=== PATIENT | male | born 1950 | race Caucasian/White ===

== ENCOUNTER 2017-12-13 06:40 | Day surgery (SDC) | payer MEDICARE, OTHER, SELFPAY ==
[2017-12-13] VITALS (9 sets, daily range): BP systolic 103–123; BP diastolic 66–77; PULSE 58–74; RESP 12–18; TEMP 36.4–36.8; O2SAT 94–99; BMI 24.0
[2017-12-13] MEDS: LACTATED RINGERS 1,000 ML 100 ML IV (07:29)
--- NOTE | 2017-12-13 07:57 | PM.PREOP ---
Pre-operative Note Interval Note Pre-op Check: History & Physical Reviewed by Physician and Exam Performed H&P completed within 30 days and has changed as indicated here:: no change
[2017-12-13] MEDS: LACTATED RINGERS 1,000 ML 42 ML IV (08:00)
[2017-12-13] MEDS: CLINDAMYCIN 900 MG/50 ML PIGGYBACK 200 MG IV (08:01)
--- NOTE | 2017-12-13 08:38 | SUR.OPER ---
USING BUPIVICAINE )0.5% INJECTED LOCALLY AT THE TIME OF THIS NOTE IT WAS NOT YET ENTERED INTO MAR TOTAL # INJECTED WILL BE NOTED AT END OF CASE
--- NOTE | 2017-12-13 09:08 | SUR.OPER ---
25 CC'S OF(0.5% BUPIVICAINE) LOCAL INJECTED
[2017-12-13] MEDS: BUPIVACAINE 0.5% (PF) 30 ML VIAL INJ (09:20)
--- NOTE | 2017-12-13 09:40 | PM.OP.1 ---
Operative Date/Time/Diagnoses - Date of procedure: 12/13/17 Time of procedure: 09:28 Pre-op diagnosis: Reducible left inguinal hernia no obstruction or strangulation Post-op diagnosis: same (Indirect) Procedure & Clinicians Procedure: Repair left inguinal hernia with plug and patch technique Same procedure as scheduled: Yes Indications: Symptomatic left inguinal hernia. SCOAP protocal followed Surgeon: Leo Lord Click Yes if Unassisted: Yes Anesthesia Type: General Operative Notes Findings: Indirect sac. Intact floor Closure Type: primary Specimen(s): none sent Implants & Drains: Mesh Estimated Blood Loss (mL): 5 Blood products transfused: none Procedure in detail: The patient was placed supine on the operating room table and underwent general LMA anesthesia. He was prepped and draped in the usual fashion. A transverse incision was made overlying the internal ring and carried down to the level of the external oblique. The external oblique was opened parallel with its fibers through the external ring. The cord structures were elevated. The cremaster was opened proximally and search made for an indirect sac. 1 was found. It was from surrounding structures opened and found to contain fat which easily reduced into the peritoneal cavity. It was suture ligated with 2 0 silk at the level of the deep epigastric vessels. A small plug was placed in the defect and tacked into place with interrupted 0 Tycron suture.. The floor was examined and was found to be intact. A patch was placed across the floor and tacked at the pubic tubercle, the posterior lamella of the anterior rectus sheath, the ilioinguinal ligament, and superior lateral to the cord. The opening was modified as necessary to prevent tight constriction of the cord. Sutures of 0 Tycron were used to secure the mesh. The external oblique was closed with a running 3 0 Polysorb. The subcu was closed with interrupted 3 0 Polysorb. The skin was closed with a running 4 0 Polysorb subcuticular stitch and Steri-Strips. Dressing was applied, the patient was awakened, and the patient was taken to the recovery area in good condition. Complications: none Condition: stable Disposition: PACU Plan for aftercare: Follow-up Sunday 1:00 p.m.
[2017-12-13] MEDS: OXYCODONE/ACETAMINOPHEN 5/325 TABLET 1 TAB PO (09:41)
--- NOTE | 2017-12-13 10:18 | SUR.PHASEII ---
pt tolerating coffee, denies any pain at this time, dressing remains dry and intact.
== END 2017-12-13 10:53 | disposition home or self-care (01) ==
PROVIDERS: Family Provider Family Medicine; PCP Family Medicine; Visit Provider Specialist
PROC: (CPT 49505; principal; 2017-12-13 07:45)
DX: K40.90 Unilateral inguinal hernia, without obstruction or gangrene, not specified as recurrent (principal); I48.91 Unspecified atrial fibrillation
CPT/HCPCS: 49505; C1781; J1100; J2250; J2405; J2704; J3010

== ENCOUNTER → 2017-12-21 12:40 | Outpatient (CLI) | payer MEDICARE, OTHER, SELFPAY ==
[2017-12-21 13:40] LABS: Add Manual Diff / Slide Review NO; Basophils Percent Auto 0.8 % (0-2); Eosinophils Percent Auto 1.5 % (2-4); Hematocrit 43.4 % (41-53); Hemoglobin 14.9 g/dL (13.5-17.5); Lymphocytes Percent Auto 20.3 % (25-40); Mean Corpuscular HGB Conc 34.3 % (30-36); Mean Corpuscular Hemoglobin 30.3 PG (26-34); Mean Corpuscular Volume 88.4 fL (80-100); Monocytes Percent Auto 8.6 % (3-14); Neutrophils Absolute Auto 3600 /uL (3000-5900); Neutrophils Percent Auto 68.8 % (50-75); Platelet Count 249 X10^3/uL (150-400); Red Blood Cell Count 4.91 X10^6/uL (4.5-5.9); Red Cell Distribution Width 12.8 % (11.6-14.8); White Blood Cell Count 5.2 X10^3/uL (4.5-11.0)
[2017-12-21 13:47] LABS: HEMOLYSIS < 15 (0-50); Iron 88 ug/dL (49-181)
[2017-12-21 13:57] LABS: Percent Iron Saturation 30 % (20-50); Total Iron Binding Capacity 297 ug/dL (261-462); Transferrin 237 mg/dL (206-381)
[2017-12-21 14:22] LABS: Ferritin 75.1 ng/mL (17.9-464)
== END ==
PROVIDERS: PCP Family Medicine; Visit Provider Family Medicine
DX: D50.9 Iron deficiency anemia, unspecified (principal)
CPT/HCPCS: 36415; 82728; 83540; 83550; 85025

== ENCOUNTER → 2018-04-24 15:12 | Outpatient (CLI) | payer MEDICARE, OTHER, SELFPAY ==
[2018-04-24 16:22] LABS: Blood Urea Nitrogen 25 mg/dL (9-20); Calcium 9.1 mg/dL (8.4-10.2); Carbon Dioxide 23 mmol/L (22-32); Chloride 102 mmol/L (98-107); Estimated Glomerular Filt Rate > 60.0 mL/min (>60); Glucose 93 mg/dL (80-110); HEMOLYSIS < 15 (0-50); Potassium 4.8 mmol/L (3.4-5.1); Sodium 138 mmol/L (137-145)
== END ==
PROVIDERS: Family Provider Family Medicine; PCP Family Medicine; Visit Provider Family Medicine
DX: I10 Essential (primary) hypertension (principal)
CPT/HCPCS: 36415; 80048

== ENCOUNTER → 2018-04-30 09:37 | Outpatient (CLI) | payer MEDICARE, OTHER, SELFPAY ==
--- NOTE | 2018-04-30 | DI.MRI.S_ITS ---
PROCEDURE: MR LUMBAR SPINE WO/W CON INDICATIONS: Cauda equina syndrome TECHNIQUE: Noncontrast sagittal T1 spin echo and T2 fast spin echo, sagittal STIR, axial T1 and T2 fast spin echo through the lumbar spine. In cases with scoliosis, additional coronal T2 fast spin echo may be performed. After the administration of contrast, sagittal and axial T1 spin echo with fat saturation through the lumbar spine. COMPARISON: [facility], MR, L-SPINE W&WO CONTRAST, 10/11/2012, 17:36. [facility], MR, L-SPINE W&WO CONTRAST, 11/15/2015, 11:37. [facility], MR, L-SPINE W&WO CONTRAST, 06/05/2014, 18:59. FINDINGS: Image quality: Excellent. Alignment and curvature: There is grade 1 anterolisthesis of L4 on L5. Minimal retrolisthesis of L2 on L3. Marrow: Marrow is of normal overall signal. No acute vertebral body compression fractures. No suspicious marrow enhancement. Spinal cord: Conus medullaris terminates at the L1 level. Visualized spinal cord demonstrates normal signal, without suspicious enhancement. Paraspinous soft tissues: No paravertebral masses or abnormal enhancement. The multiple small renal cysts are seen bilaterally L1-L2: Preserved disc height. Mild disc desiccation. There is mild posterior disc bulge. There is moderate bilateral facet arthropathy and mild hypertrophy of ligamentum flavum. The central canal is patent. No foraminal stenosis. L2-L3: Left hemilaminectomy. Moderate loss of disc height and disc desiccation. There is diffuse posterior disc bulge. The central canal is patent. No foraminal stenosis. L3-L4: Moderate loss of disc height and disc desiccation. There is diffuse posterior disc bulge. Mild bilateral facet arthropathy and hypertrophy of ligamentum flavum. The central canal is patent. [id number] bilateral foraminal stenosis. There is no significant change from the last exam. L4-L5: Moderate loss of disc height and disc desiccation. There is diffuse posterior disc bulge. Severe bilateral facet arthropathy and mild hypertrophy of ligamentum flavum. The central canal is mildly narrowed. Mild-to moderate bilateral foraminal stenosis. There is no significant change from the last exam. L5-S1: Preserved disc height. Mild disc desiccation. Mild to moderate bilateral facet arthropathy. No central canal or foraminal stenosis. IMPRESSION: 1. Multilevel degenerative and postsurgical as described. 2. Mild central canal stenosis at L4-L5. 3. Mild-to- foraminal stenosis at L3-L4 bilaterally and L4-L5 bilaterally. Dictated by: Hortencia Mckinnon M.D. on 04/30/2018 at 11:27 Approved by: Hortencia Mckinnon M.D. on 04/30/2018 at 17:14
== END ==
PROVIDERS: PCP Family Medicine; Visit Provider Family Medicine
DX: G83.4 Cauda equina syndrome (principal); M54.16 Radiculopathy, lumbar region; M51.36 Other intervertebral disc degeneration, lumbar region; M51.37 Other intervertebral disc degeneration, lumbosacral region; M48.061 Spinal stenosis, lumbar region without neurogenic claudication; M48.07 Spinal stenosis, lumbosacral region
CPT/HCPCS: 72158; A9579

== ENCOUNTER 2018-09-07 11:10 | Emergency (ER) | payer MEDICARE, OTHER, SELFPAY ==
[2018-09-07 11:26] VITALS: BP 111/77; PULSE 81; RESP 16; TEMP 36.6; O2SAT 99; BMI 25.0
--- NOTE | 2018-09-07 11:28 | DI.RAD.S_ITS ---
PROCEDURE: XR FOOT RT MIN 3V INDICATIONS: right foot pain TECHNIQUE: 3 views of the foot were acquired. COMPARISON: None. FINDINGS: Bones: Mildly displaced fracture involving the base of the fifth metatarsal. First MTP joint osteoarthritis. Soft tissues: No tibiotalar joint effusion. Achilles tendon appears normal. IMPRESSION: Fifth metatarsal fracture. Dictated by: Opal David MD, PhD on 09/07/2018 at 11:46 Approved by: Opal David MD, PhD on 09/07/2018 at 11:47
--- NOTE | 2018-09-07 11:50 | ED.LOWEXIN ---
HPI - Extremity Injury (Lower) General Chief Complaint: Extremity Injury, Lower Stated Complaint: injured rt foot last night walking, swelling, brui Time Seen by Provider: 09/07/18 11:33 Source: patient and family () Mode of arrival: ambulatory Limitations: no limitations History of Present Illness HPI Narrative: This is a 68-year-old male comes to the emergency department with complaint of right foot pain. Patient states that he was walking yesterday with his he felt like stepping on hard rock had pain in his foot since then. It is localized to the outside of the right foot. Patient states if he bears weight is uncomfortable. If he does not he is fine. He did take have hydrocodone said yesterday. He was able to sleep without the night without any issues. He does not have any new tingling or numbness. He has some chronic tingling from prior cauda equina. No new weakness. No other skin changes. Patient denies any trauma or injury otherwise. Related Data Home Medications Medication Instructions Recorded Confirmed apixaban [Eliquis] 5 mg PO BID #0 12/20/16 12/28/17 clonazepam 0.5 mg PO TID PRN #0 12/20/16 12/28/17 cyclobenzaprine 10 mg PO TID PRN #0 12/20/16 12/28/17 diazepam 2 mg PO BEDTIME #0 12/20/16 12/28/17 olopatadine [Patanol] 1 drp EYE-BOTH BID #0 12/20/16 12/28/17 escitalopram oxalate 20 mg PO DAILY 12/11/17 12/28/17 fluticasone 1 spray INTRANASAL DAILY 12/11/17 12/28/17 lisinopril 10 mg PO DAILY 12/11/17 12/28/17 magnesium oxide 400 mg PO DAILY 12/11/17 12/28/17 meloxicam 15 mg PO DAILY PRN 12/11/17 12/28/17 metoprolol succinate 50 mg PO BID 12/11/17 12/28/17 omeprazole 20 mg PO DAILY PRN 12/11/17 12/28/17 tamsulosin 0.4 mg PO BID 12/11/17 12/28/17 trazodone 100 mg PO BEDTIME 12/11/17 12/28/17 Allergies Allergy/AdvReac Type Severity Reaction Status Date / Time Milk Containing Products Allergy Unknown Diarrhea Verified 12/28/17 14:04 Penicillins [PENICILLINS] Allergy Unknown Hallucinations, Verified 12/28/17 14:04 Fever whey Allergy Unknown Diarrhea Verified 12/28/17 14:04 Review of Systems Review of Systems ROS Unobtainable: All systems reviewed & are unremarkable except as noted in HPI and below Constitutional Denies weakness Musculoskeletal Reports as per HPI, Denies numbness, Reports tingling (Chronic) and Reports other (Pain in foot) Integumentary/Breasts Denies erythema, Denies rash, Denies unusual bruising and Denies wounds Neurologic Denies numbness, Reports tingling (Chronic) and Denies weakness PFSH Medical History Anemia (Acute) Arthritis (Acute) History of atrial fibrillation (Acute) Hypertension (Acute) Impaired vision (Acute) Left inguinal hernia (Acute) Neuropathy of left lower extremity (Acute) Neuropathy of right lower extremity (Acute) Pain in finger of both hands (Acute) CONI (cauda equina syndrome) (Chronic) Surgical History H/O cardiac radiofrequency ablation (Acute) Social History household members: spouse Smoking Status: Former smoker alcohol intake: never Social History household members: spouse Smoking Status: Former smoker alcohol intake: never Exam Narrative Exam Narrative: GENERAL: Alert and oriented x three, well-nourished, well-appearing male in no acute distress. HEENT: Head normocephalic, atraumatic, EOMI, pupils reactive, face symmetric, moist mucous membranes NECK: Supple, full range of motion EXTREMITIES: Normal range of motion, no clubbing or edema. Neurovascularly intact. Patient has some tenderness over the proximal right metatarsal. There is some slight swelling. Possibly some very mild bruising. Patient has normal sensation to touch. 2+ dorsalis pedis normal range of motion NEUROLOGICAL: Cranial nerves II through XII grossly intact. Moving all extremities SKIN: Warm, dry, no petechiae, no rashes or lesions. Initial Vital Signs Initial Vital Signs: Vital Signs Temperature 97.9 F 09/07/18 11:26 Pulse Rate 81 09/07/18 11:26 Respiratory Rate 16 09/07/18 11:26 Blood Pressure 111/77 09/07/18 11:26 Pulse Oximetry 99 09/07/18 11:26 Course Orders Ordered: ED Orders 09/07/18 11:28 XR foot RT min 3V Stat Vital Signs - 8 hr 09/07/18 11:26 Temperature 97.9 F Pulse Rate 81 Respiratory Rate 16 Blood Pressure 111/77 Pulse Oximetry 99 MDM - Extremity Injury (Lower) Imaging Data foot xray: Radiologist's impression: [address] [address] XRay Report Signed Patient: Brien Trejo LMR#: [id number] : 1950Acct:[id number] Age/Sex: 68 / MDate of Service: 09/07/18 Loc: ED Accession Number: [id number] Procedure: XR foot RT min 3V Ordering Provider: Flor Kraus D.O. PROCEDURE: XR FOOT RT MIN 3V INDICATIONS: right foot pain TECHNIQUE: 3 views of the foot were acquired. COMPARISON: None. FINDINGS: Bones: Mildly displaced fracture involving the base of the fifth metatarsal. First MTP joint osteoarthritis. Soft tissues: No tibiotalar joint effusion. Achilles tendon appears normal. IMPRESSION: Fifth metatarsal fracture. Dictated by: Opal David MD, PhD on 09/07/2018 at 11:46 Approved by: Opal David MD, PhD on 09/07/2018 at 11:47 [facility] Narrative Medical decision making narrative: Spoke with Dr. Rausch, plan for ortho shoe. Follow up with orthopedic surgery. Discharge Plan Departure Patient Disposition: Home Clinical Impression: Closed fracture of fifth metatarsal bone Qualifiers: Encounter type: initial encounter Fracture alignment: displaced Laterality: right Qualified Code(s): S92.351A - Displaced fracture of fifth metatarsal bone, right foot, initial encounter for closed fracture Discharge Date/Time: 09/07/18 12:50 Interventions: ED Discharge Assessment Last Done: 09/07/18 12:57 Instructions: DI for March Stress Fracture Activity Restrictions/Additional Instructions: Follow-up with Orthopedic surgery in the next 5-7 days, call for an appointment. You may take Tylenol up to a 1000 mg every 8 hr for pain, you may take up to 3000 mg every 24 hr as needed. Splint Care: Keep splint clean and dry. Elevated affected body part to decrease swelling. OK to use ice pack on the affected body part. Use for 15-20 minutes each time, for 5-6x per day. If you develop worsening pain, numbness, tingling, discoloration of the affected body part, loosen the splint by loosening the GILLES wrap, and either see your doctor for an urgent re-assessment, or return to the Emergency Department. Return to the Emergency Department for any new or worsening symptoms. Prescriptions: No Action diazepam 2 MG tablet 2 mg PO BEDTIME Qty: 0 RF: 0 cyclobenzaprine 10 MG tablet 10 mg PO TID PRN (Reason: Muscle spasms) Qty: 0 RF: 0 clonazepam 0.5 MG tablet 0.5 mg PO TID PRN (Reason: Anxiety) Qty: 0 RF: 0 olopatadine [Patanol] 5 ML drops 1 drp EYE-BOTH BID Qty: 0 RF: 0 apixaban [Eliquis] 5 MG tablet 5 mg PO BID Qty: 0 RF: 0 metoprolol succinate 50 mg Tablet Extended Release 24 Hr 50 mg PO BID RF: 0 meloxicam 15 mg Tablet 15 mg PO DAILY PRN (Reason: pain) RF: 0 magnesium oxide 400 mg Tablet 400 mg PO DAILY RF: 0 lisinopril 10 mg Tablet 10 mg PO DAILY RF: 0 fluticasone 50 mcg/actuation [place],Suspension 1 spray INTRANASAL DAILY RF: 0 escitalopram oxalate 20 mg Tablet 20 mg PO DAILY RF: 0 tamsulosin 0.4 mg Capsule,Extended Release 24hr 0.4 mg PO BID RF: 0 trazodone 100 mg Tablet 100 mg PO BEDTIME RF: 0 omeprazole 20 mg Capsule,Delayed Release(Dr/Ec) 20 mg PO DAILY PRN (Reason: seeinstr) RF: 0 Referrals: Sandra Cox MD [Primary Care Provider] - Bryan Rausch MD [Physician] -
--- NOTE | 2018-09-07 11:58 | ED_ITS ---
HPI - Extremity Injury (Lower) General Chief Complaint: Extremity Injury, Lower Stated Complaint: injured rt foot last night walking, swelling, brui Time Seen by Provider: 09/07/18 11:33 Source: patient and family () Mode of arrival: ambulatory Limitations: no limitations History of Present Illness HPI Narrative: This is a 68-year-old male comes to the emergency department with complaint of right foot pain. Patient states that he was walking yesterday with his he felt like stepping on hard rock had pain in his foot since then. It is localized to the outside of the right foot. Patient states if he bears weight is uncomfortable. If he does not he is fine. He did take have hydrocodone said yesterday. He was able to sleep without the night without any issues. He does not have any new tingling or numbness. He has some chronic tingling from prior cauda equina. No new weakness. No other skin changes. Patient denies any trauma or injury otherwise. Related Data Home Medications Medication Instructions Recorded Confirmed apixaban [Eliquis] 5 mg PO BID #0 12/20/16 12/28/17 clonazepam 0.5 mg PO TID PRN #0 12/20/16 12/28/17 cyclobenzaprine 10 mg PO TID PRN #0 12/20/16 12/28/17 diazepam 2 mg PO BEDTIME #0 12/20/16 12/28/17 olopatadine [Patanol] 1 drp EYE-BOTH BID #0 12/20/16 12/28/17 escitalopram oxalate 20 mg PO DAILY 12/11/17 12/28/17 fluticasone 1 spray INTRANASAL DAILY 12/11/17 12/28/17 lisinopril 10 mg PO DAILY 12/11/17 12/28/17 magnesium oxide 400 mg PO DAILY 12/11/17 12/28/17 meloxicam 15 mg PO DAILY PRN 12/11/17 12/28/17 metoprolol succinate 50 mg PO BID 12/11/17 12/28/17 omeprazole 20 mg PO DAILY PRN 12/11/17 12/28/17 tamsulosin 0.4 mg PO BID 12/11/17 12/28/17 trazodone 100 mg PO BEDTIME 12/11/17 12/28/17 Allergies Allergy/AdvReac Type Severity Reaction Status Date / Time Milk Containing Products Allergy Unknown Diarrhea Verified 12/28/17 14:04 Penicillins [PENICILLINS] Allergy Unknown Hallucinations, Verified 12/28/17 14:04 Fever whey Allergy Unknown Diarrhea Verified 12/28/17 14:04 Review of Systems Review of Systems ROS Unobtainable: All systems reviewed & are unremarkable except as noted in HPI and below Constitutional Denies weakness Musculoskeletal Reports as per HPI, Denies numbness, Reports tingling (Chronic) and Reports other (Pain in foot) Integumentary/Breasts Denies erythema, Denies rash, Denies unusual bruising and Denies wounds Neurologic Denies numbness, Reports tingling (Chronic) and Denies weakness PFSH Medical History Anemia (Acute) Arthritis (Acute) History of atrial fibrillation (Acute) Hypertension (Acute) Impaired vision (Acute) Left inguinal hernia (Acute) Neuropathy of left lower extremity (Acute) Neuropathy of right lower extremity (Acute) Pain in finger of both hands (Acute) CONI (cauda equina syndrome) (Chronic) Surgical History H/O cardiac radiofrequency ablation (Acute) Social History household members: spouse Smoking Status: Former smoker alcohol intake: never Social History household members: spouse Smoking Status: Former smoker alcohol intake: never Exam Narrative Exam Narrative: GENERAL: Alert and oriented x three, well-nourished, well- appearing male in no acute distress. HEENT: Head normocephalic, atraumatic, EOMI, pupils reactive, face symmetric, moist mucous membranes NECK: Supple, full range of motion EXTREMITIES: Normal range of motion, no clubbing or edema. Neurovascularly intact. Patient has some tenderness over the proximal right metatarsal. There is some slight swelling. Possibly some very mild bruising. Patient has normal sensation to touch. 2+ dorsalis pedis normal range of motion NEUROLOGICAL: Cranial nerves II through XII grossly intact. Moving all extremities SKIN: Warm, dry, no petechiae, no rashes or lesions. Initial Vital Signs Initial Vital Signs: Vital Signs Temperature 97.9 F 09/07/18 11:26 Pulse Rate 81 09/07/18 11:26 Respiratory Rate 16 09/07/18 11:26 Blood Pressure 111/77 09/07/18 11:26 Pulse Oximetry 99 09/07/18 11:26 Course Orders Ordered: ED Orders 09/07/18 11:28 XR foot RT min 3V Stat Vital Signs - 8 hr 09/07/18 11:26 Temperature 97.9 F Pulse Rate 81 Respiratory Rate 16 Blood Pressure 111/77 Pulse Oximetry 99 MDM - Extremity Injury (Lower) Imaging Data foot xray: Radiologist's impression: [address] [address] XRay Report Signed Patient: Brien Trejo LMR#: [id number] : 1950Acct:[id number] Age/Sex: 68 / MDate of Service: 09/07/18 Loc: ED Accession Number: [id number] Procedure: XR foot RT min 3V Ordering Provider: Flor Kraus D.O. PROCEDURE: XR FOOT RT MIN 3V INDICATIONS: right foot pain TECHNIQUE: 3 views of the foot were acquired. COMPARISON: None. FINDINGS: Bones: Mildly displaced fracture involving the base of the fifth metatarsal. First MTP joint osteoarthritis. Soft tissues: No tibiotalar joint effusion. Achilles tendon appears normal. IMPRESSION: Fifth metatarsal fracture. Dictated by: Opal David MD, PhD on 09/07/2018 at 11:46 Approved by: Opal David MD, PhD on 09/07/2018 at 11:47 [facility] Narrative Medical decision making narrative: Spoke with Dr. Rausch, plan for ortho shoe. Follow up with orthopedic surgery. Discharge Plan Departure Patient Disposition: Home Clinical Impression: Closed fracture of fifth metatarsal bone Qualifiers: Encounter type: initial encounter Fracture alignment: displaced Laterality: right Qualified Code(s): S92.351A - Displaced fracture of fifth metatarsal bone, right foot, initial encounter for closed fracture Discharge Date/Time: 09/07/18 12:50 Interventions: ED Discharge Assessment Last Done: 09/07/18 12:57 Instructions: DI for March Stress Fracture Activity Restrictions/Additional Instructions: Follow-up with Orthopedic surgery in the next 5-7 days, call for an appointment. You may take Tylenol up to a 1000 mg every 8 hr for pain, you may take up to 3000 mg every 24 hr as needed. Splint Care: Keep splint clean and dry. Elevated affected body part to decrease swelling. OK to use ice pack on the affected body part. Use for 15-20 minutes each time, for 5-6x per day. If you develop worsening pain, numbness, tingling, discoloration of the affected body part, loosen the splint by loosening the GILLES wrap, and either see your doctor for an urgent re-assessment, or return to the Emergency Department. Return to the Emergency Department for any new or worsening symptoms. Prescriptions: No Action diazepam 2 MG tablet 2 mg PO BEDTIME Qty: 0 RF: 0 cyclobenzaprine 10 MG tablet 10 mg PO TID PRN (Reason: Muscle spasms) Qty: 0 RF: 0 clonazepam 0.5 MG tablet 0.5 mg PO TID PRN (Reason: Anxiety) Qty: 0 RF: 0 olopatadine [Patanol] 5 ML drops 1 drp EYE-BOTH BID Qty: 0 RF: 0 apixaban [Eliquis] 5 MG tablet 5 mg PO BID Qty: 0 RF: 0 metoprolol succinate 50 mg Tablet Extended Release 24 Hr 50 mg PO BID RF: 0 meloxicam 15 mg Tablet 15 mg PO DAILY PRN (Reason: pain) RF: 0 magnesium oxide 400 mg Tablet 400 mg PO DAILY RF: 0 lisinopril 10 mg Tablet 10 mg PO DAILY RF: 0 fluticasone 50 mcg/actuation [place],Suspension 1 spray INTRANASAL DAILY RF: 0 escitalopram oxalate 20 mg Tablet 20 mg PO DAILY RF: 0 tamsulosin 0.4 mg Capsule,Extended Release 24hr 0.4 mg PO BID RF: 0 trazodone 100 mg Tablet 100 mg PO BEDTIME RF: 0 omeprazole 20 mg Capsule,Delayed Release(Dr/Ec) 20 mg PO DAILY PRN (Reason: seeinstr) RF: 0 Referrals: Sandra Cox MD [Primary Care Provider] - Bryan Rausch MD [Physician] -
== END 2018-09-07 12:50 | disposition home or self-care (01) ==
PROVIDERS: Emergency Provider Emergency Medicine; PCP Family Medicine
DX: S92.351A Displaced fracture of fifth metatarsal bone, right foot, initial encounter for closed fracture (principal)
CPT/HCPCS: 29550; 73630; 99282; 99283

== ENCOUNTER → 2018-12-04 14:00 | Outpatient (CLI) | payer MEDICARE, OTHER, SELFPAY ==
[2018-12-04 15:08] LABS: Add Manual Diff / Slide Review NO; Basophils Absolute Auto 0 /uL (0-100); Basophils Percent Auto 0.8 % (0-2); Eosinophils Absolute Auto 0 /uL (0-450); Hematocrit 43.5 % (41-53); Hemoglobin 15.1 g/dL (13.5-17.5); Lymphocytes Absolute Auto 1200 /uL (1100-4500); Lymphocytes Percent Auto 34.3 % (25-40); Mean Corpuscular HGB Conc 34.7 % (30-36); Mean Corpuscular Hemoglobin 30.4 PG (26-34); Mean Corpuscular Volume 87.7 fL (80-100); Monocytes Absolute Auto 400 /uL (0-900); Monocytes Percent Auto 10.4 % (3-14); Neutrophils Absolute Auto 1900 /uL (1500-7000); Neutrophils Percent Auto 53.5 % (50-75); Platelet Count 222 X10^3/uL (150-400); Red Blood Cell Count 4.96 X10^6/uL (4.5-5.9); Red Cell Distribution Width 13.5 % (11.6-14.8); White Blood Cell Count 3.5 X10^3/uL (4.5-11.0)
[2018-12-04 15:27] LABS: Alanine Aminotransferase 18 IU/L (21-72); Albumin 4.5 g/dL (3.5-5.0); Albumin Globulin Ratio 1.5 (1.0-2.8); Alkaline Phosphatase 52 U/L (38-126); Aspartate Aminotransferase 29 IU/L (17-59); BUN Creatinine Ratio 27.5 (6-22); Bilirubin Total 0.6 mg/dL (0.2-1.3); Blood Urea Nitrogen 22 mg/dL (9-20); Calcium 9.7 mg/dL (8.4-10.2); Carbon Dioxide 25 mmol/L (22-32); Chloride 103 mmol/L (98-107); Estimated Glomerular Filt Rate > 60.0 mL/min (>60); Globulin 3.1 g/dL (1.7-4.1); Glucose 89 mg/dL (80-110); HEMOLYSIS < 15 (0-50); Potassium 4.3 mmol/L (3.4-5.1); Sodium 137 mmol/L (137-145); Total Protein 7.6 g/dL (6.3-8.2)
[2018-12-04 15:30] LABS: Iron 118 ug/dL (49-181)
== END ==
PROVIDERS: PCP Family Medicine; Visit Provider Family Medicine
DX: D50.9 Iron deficiency anemia, unspecified (principal)
CPT/HCPCS: 36415; 80053; 83540; 85025

== ENCOUNTER → 2019-07-23 15:01 | Outpatient (CLI) | payer MEDICARE, OTHER, SELFPAY ==
[2019-07-23 16:36] LABS: HEMOLYSIS < 15 (0-50); Iron 95 ug/dL (49-181)
[2019-07-23 16:38] LABS: Add Manual Diff / Slide Review NO; Basophils Absolute Auto 0 /uL (0-100); Basophils Percent Auto 0.8 % (0-2); Eosinophils Absolute Auto 100 /uL (0-450); Eosinophils Percent Auto 1.4 % (2-4); Hematocrit 45.8 % (41-53); Hemoglobin 15.5 g/dL (13.5-17.5); Lymphocytes Absolute Auto 1300 /uL (1100-4500); Lymphocytes Percent Auto 36.6 % (25-40); Mean Corpuscular Volume 88.2 fL (80-100); Monocytes Absolute Auto 400 /uL (0-900); Monocytes Percent Auto 10.9 % (3-14); Neutrophils Absolute Auto 1800 /uL (1500-7000); Neutrophils Percent Auto 50.3 % (50-75); Platelet Count 199 X10^3/uL (150-400); Red Blood Cell Count 5.19 X10^6/uL (4.5-5.9); Red Cell Distribution Width 12.7 % (11.6-14.8); White Blood Cell Count 3.6 X10^3/uL (4.5-11.0)
[2019-07-23 16:40] LABS: Alanine Aminotransferase 18 IU/L (<50); Albumin 4.5 g/dL (3.5-5.0); Albumin Globulin Ratio 1.6 (1.0-2.8); Alkaline Phosphatase 53 U/L (38-126); Aspartate Aminotransferase 27 IU/L (17-59); BUN Creatinine Ratio 15.6 (6-22); Bilirubin Total 0.6 mg/dL (0.2-1.3); Blood Urea Nitrogen 14 mg/dL (9-20); Calcium 9.6 mg/dL (8.4-10.2); Carbon Dioxide 22 mmol/L (22-32); Chloride 104 mmol/L (98-107); Estimated Glomerular Filt Rate > 60.0 mL/min (>60); Globulin 2.9 g/dL (1.7-4.1); Glucose 92 mg/dL (80-110); HEMOLYSIS < 15 (0-50); Potassium 4.5 mmol/L (3.4-5.1); Sodium 138 mmol/L (137-145); Total Protein 7.4 g/dL (6.3-8.2)
[2019-07-23 16:47] LABS: Percent Iron Saturation 33 % (20-50); Total Iron Binding Capacity 288 ug/dL (261-462); Transferrin 233 mg/dL (206-381)
[2019-07-23 17:10] LABS: Prostate Specific Antigen 1.75 ng/mL (0.10-4.00)
== END ==
PROVIDERS: PCP Family Medicine; Visit Provider Family Medicine
DX: E78.41 Elevated Lipoprotein(a) (principal); E61.1 Iron deficiency; N40.0 Benign prostatic hyperplasia without lower urinary tract symptoms
CPT/HCPCS: 36415; 80053; 83540; 83550; 84153; 85025

== ENCOUNTER → 2019-11-05 14:49 | Outpatient (CLI) | payer MEDICARE, OTHER, SELFPAY ==
[2019-11-05 15:21] LABS: Add Manual Diff / Slide Review NO; Basophils Absolute Auto 0 /uL (0-100); Basophils Percent Auto 0.9 % (0-2); Eosinophils Absolute Auto 100 /uL (0-450); Eosinophils Percent Auto 1.6 % (2-4); Hematocrit 43.1 % (41-53); Hemoglobin 14.8 g/dL (13.5-17.5); Lymphocytes Absolute Auto 1300 /uL (1100-4500); Lymphocytes Percent Auto 32.9 % (25-40); Mean Corpuscular HGB Conc 34.4 % (30-36); Mean Corpuscular Hemoglobin 30.5 PG (26-34); Mean Corpuscular Volume 88.6 fL (80-100); Monocytes Absolute Auto 400 /uL (0-900); Neutrophils Absolute Auto 2200 /uL (1500-7000); Neutrophils Percent Auto 53.6 % (50-75); Platelet Count 215 X10^3/uL (150-400); Red Blood Cell Count 4.87 X10^6/uL (4.5-5.9); Red Cell Distribution Width 13.4 % (11.6-14.8)
[2019-11-05 16:12] LABS: BUN Creatinine Ratio 19.8 (6-22); Blood Urea Nitrogen 18 mg/dL (9-20); Calcium 9.7 mg/dL (8.4-10.2); Carbon Dioxide 28 mmol/L (22-32); Chloride 104 mmol/L (98-107); Estimated Glomerular Filt Rate > 60.0 mL/min (>60); Glucose 93 mg/dL (80-110); HEMOLYSIS < 15 (0-50); Potassium 4.4 mmol/L (3.4-5.1); Sodium 137 mmol/L (137-145)
[2019-11-05 16:42] LABS: Iron 137 ug/dL (49-181)
[2019-11-05 16:47] LABS: Ferritin 91 ng/mL (18-464)
== END ==
PROVIDERS: PCP Family Medicine; Referring Provider Family Medicine; Visit Provider Family Medicine
DX: D50.9 Iron deficiency anemia, unspecified (principal); I10 Essential (primary) hypertension
CPT/HCPCS: 36415; 80048; 82728; 83540; 85025

== ENCOUNTER → 2020-02-23 09:36 | Outpatient (CLI) | payer MEDICARE, OTHER, SELFPAY ==
--- NOTE | 2020-02-23 | DI.MRI.S_ITS ---
PROCEDURE: MR LUMBAR SPINE WO/W CON INDICATIONS: Cauda equina syndrome TECHNIQUE: Noncontrast sagittal T1 spin echo and T2 fast spin echo, sagittal STIR, axial T1 and T2 fast spin echo through the lumbar spine. In cases with scoliosis, additional coronal T2 fast spin echo may be performed. After the administration of contrast, sagittal and axial T1 spin echo with fat saturation through the lumbar spine. COMPARISON: [facility], RG, XR IVP W/TOMOGRAMS, 07/31/2000, 11:03. [facility], RG, XR L-SPINE 7V, 04/02/2006, 10:46. [facility], XA, L/S-SPINE 2-3 VIEWS PAIN DEPT, 05/27/2008, 9:05. [facility], MR, MR LUMBAR SPINE WO/W CON, 04/30/2018, 10:06. FINDINGS: Image quality: Excellent. Alignment and curvature: 5 lumbar type vertebral bodies are present by plain film. There is mild grade 1 retrolisthesis of L1 on L2, L2 on L3, and L3 on L4. Mild grade 1 anterolisthesis of L4 on L5. Marrow: Marrow is of normal overall signal. No acute vertebral body compression fractures. No suspicious marrow enhancement. There is mild reactive signal within the endplates adjacent to the L2-L3, L3-L4, and L4-L5 intervertebral discs. Left L2-L3 hemilaminotomy. Spinal cord: Conus medullaris terminates at the lower L1 level. Visualized spinal cord demonstrates normal signal, without suspicious enhancement. Paraspinous soft tissues: No paravertebral masses or abnormal enhancement. No change in 29 mm left adrenal nodule. L1-L2: Mild disc desiccation. Mild diffuse disc bulge. Mild facet hypertrophy bilaterally. Mild canal stenosis. Mild bilateral foraminal stenosis. No change. L2-L3: Moderate disc height loss and desiccation. Mild diffuse disc bulge. Mild bilateral facet hypertrophy. Mild canal stenosis. Mild bilateral foraminal stenosis. No change. L3-L4: Moderate disc height loss and desiccation. Mild diffuse disc bulge/osteophyte. Mild bilateral facet and ligamentum flavum hypertrophy. Mild canal stenosis. Moderate subarticular foraminal stenosis bilaterally. No change. L4-L5: Severe disc height loss and desiccation. Mild diffuse disc bulge with superimposed broad-based left far lateral protrusion. Mild bilateral facet and ligamentum flavum hypertrophy. Increased, moderate canal stenosis. Mild bilateral foraminal stenosis. L5-S1: Mild bilateral facet hypertrophy. Mild canal stenosis. Mild bilateral foraminal stenosis. No change. IMPRESSION: 1. No change in left adrenal nodule. 2. Multilevel degenerative disc and facet disease, as well as ligamentum flavum hypertrophy and epidural lipomatosis. 3. Multilevel canal stenosis, worst at L4-L5 where there is moderate canal stenosis. 4. Multilevel foraminal stenoses, worst at L3-L4 bilaterally where there are moderate foraminal stenoses. 5. Postsurgical sequelae at L2-L3. Dictated by: María Donald M.D. on 02/23/2020 at 13:41 Approved by: María Donald M.D. on 02/23/2020 at 14:00
== END ==
PROVIDERS: PCP Family Medicine; Referring Provider Family Medicine; Visit Provider Family Medicine
DX: G83.4 Cauda equina syndrome (principal); M51.16 Intervertebral disc disorders with radiculopathy, lumbar region; M48.061 Spinal stenosis, lumbar region without neurogenic claudication; M48.07 Spinal stenosis, lumbosacral region; E27.9 Disorder of adrenal gland, unspecified; R25.2 Cramp and spasm; E88.2 Lipomatosis, not elsewhere classified
CPT/HCPCS: 72158

== ENCOUNTER → 2020-07-22 07:51 | Outpatient (CLI) | payer MEDICARE, OTHER, SELFPAY ==
[2020-07-22] MEDS: COVID-19 VACC #1, MRNA(MOD) 100 MCG/0.5 ML VIAL IM (08:02)
== END ==
PROVIDERS: PCP Family Medicine; Visit Provider Internal Medicine
DX: Z23 Encounter for immunization (principal)
CPT/HCPCS: 0011A; 91301

== ENCOUNTER → 2020-07-26 12:04 | Oncology outpatient (ONC) | payer MEDICARE, OTHER, SELFPAY ==
[2020-01-08 10:44] VITALS: BP 133/85; PULSE 49; RESP 16; TEMP 36.5; O2SAT 100
--- NOTE | 2020-01-08 10:45 | ONC.CONS ---
History of Present Illness - Data of Consult Patient: new to practice Consult date: 01/08/20 Requesting Physician: Sandra Cox MD Primary Care Provider: Sandra Cox MD - Consult Narrative Reason for consult: Leukopenia Narrative: Brien Trejo is a 69 year old male. He was referred by Dr. Sandra Cox MD for for evaluation of mild chronic low white blood cell count. Patient himself claimed that he had never had any anemia or low blood counts until after a laminectomy probably around 2009. He was evaluated in March [address] Jusitn Almonte at [facility]. At that time patient carried a diagnosis of anemia and a mild neutropenia which was believed to be secondary to iron deficiency and folic acid deficiency. His lowest WBC was 2.8 on 07/01/2010. His H/H and PLT were completely within the normal range. But he was having pain and splitting at the corners of the mouth splitting and nail splitting. The signs and symptoms went away when he started taking ferrous sulfate and folate. Thereafter, her WBC has been largely normal. This happened again about 1-2 years later after another treatment with 5-FU. Brien has not had any 5-FU treatment for several years now. Brien said he has not been feeling sick. He had convergent ablation in 2017 for atrial fibrillation. He denies any fever or chills. He denies nausea or vomiting. He does report occasional diarrhea and thought to be due to medications. He is now taking oral iron pills every day. He said if he is not taking the pill, he will feel winded. CC: Lito Melo MD Patient reports pain?: No Home Medications and Allergies Home Medications Medication Instructions Recorded Confirmed Type Eliquis 5 mg PO BID #0 12/20/16 01/08/20 History clonazepam 0.5 mg PO TID PRN #0 12/20/16 01/08/20 History cyclobenzaprine 10 mg PO TID PRN #0 12/20/16 01/08/20 History diazepam 2 mg PO BEDTIME #0 12/20/16 01/08/20 History olopatadine [Patanol] 1 drp EYE-BOTH BID #0 12/20/16 12/28/17 History escitalopram oxalate 20 mg PO DAILY 12/11/17 01/08/20 History fluticasone propionate 1 spray INTRANASAL DAILY 12/11/17 01/08/20 History lisinopril 10 mg PO DAILY 12/11/17 01/08/20 History magnesium oxide 400 mg PO DAILY 12/11/17 01/08/20 History meloxicam 15 mg PO DAILY PRN 12/11/17 01/08/20 History metoprolol succinate 50 mg PO BID 12/11/17 01/08/20 History omeprazole 20 mg PO DAILY PRN 12/11/17 01/08/20 History trazodone 100 mg PO BEDTIME 12/11/17 01/08/20 History finasteride 5 mg tablet 5 mg PO DAILY 01/05/20 01/08/20 History hydrocodone-acetaminophen 1 tab PO BID PRN 01/08/20 01/08/20 History Allergies Allergy/AdvReac Type Severity Reaction Status Date / Time Milk Containing Products Allergy Unknown Diarrhea Verified 01/05/20 08:55 Penicillins [PENICILLINS] Allergy Unknown Hallucinations, Verified 01/05/20 08:55 Fever whey Allergy Unknown Diarrhea Verified 01/05/20 08:55 Medical History - Medical, Surgical, Family History Medical History: Medical History (Last Updated 01/05/20 @ 09:30 by Reed Minaya MD) Anemia Arthritis BPH (benign prostatic hyperplasia) BPH w urinary obs/LUTS CONI (cauda equina syndrome) Depression History of atrial fibrillation Hypertension Impaired vision Kidney stones Left inguinal hernia Neurogenic bladder Neuropathy of left lower extremity Neuropathy of right lower extremity Pain in finger of both hands Surgical History: Surgical History (Last Updated 01/05/20 @ 08:59 by Tawny Rosales RN) H/O cardiac radiofrequency ablation Previous back surgery Vasectomy status Family History: Family History (Last Updated 01/08/20 @ 11:01 by Lito Melo MD) Mother Ovarian cancer - Social History Smoking Status: Former smoker Substance Use Type: does not use Alcohol Intake: never Review of Systems All systems PM: reviewed and no additional remarkable complaints except as stated Exam Vital signs: 01/08/20 11:03 Last Vital Signs Temp 97.7 F 01/08/20 10:44 Pulse 49 L 01/08/20 10:44 Resp 16 01/08/20 10:44 BP 133/85 01/08/20 10:44 Pulse Ox 100 01/08/20 10:44 - Constitutional positive no acute distress, positive average body habitus, positive cooperative - Routine HEENT Exam Head: Present: normocephalic, atraumatic Eye: Present: EOMI, PERRL, normal accommodation. Absent: conjunctival icterus - Routine Neck Exam Present: supple. Absent: lymphadenopathy, thyromegaly - Routine Chest/Breast/Axilla Exam Axillae: Absent: lymphadenopathy - Routine Respiratory Exam Present: Clear to auscultation bilaterally - Routine Cardiovascular Exam Present: RRR, S1, S2. Absent: murmur, gallop, rubs - Routine Abdominal Exam Present: soft. Absent: organomegaly - Routine Extremities Exam Absent: edema - Routine Neurological Exam Present: alert, oriented X3, CN II-XII intact, normal reflexes, hearing grossly intact. Absent: sensory deficit, motor deficit - Routine Psychiatric Exam Present: normal affect, normal thought process, cooperative, good insight, good judgment. Absent: depressed, anxious Results - Labs Laboratory Last Values WBC 3.3 X10^3/uL (4.5-11.0) L 01/08/20 11:04 RBC 4.60 X10^6/uL (4.5-5.9) 01/08/20 11:04 Hgb 14.1 g/dL (13.5-17.5) 01/08/20 11:04 Hct 41.2 % (41-53) 01/08/20 11:04 MCV 89.6 fL (80-100) 01/08/20 11:04 MCH 30.6 PG (26-34) 01/08/20 11:04 MCHC 34.1 % (30-36) 01/08/20 11:04 RDW 13.1 % (11.6-14.8) 01/08/20 11:04 Plt Count 188 X10^3/uL (150-400) 01/08/20 11:04 Neut % (Auto) 54.1 % (50-75) 01/08/20 11:04 Lymph % (Auto) 33.2 % (25-40) 01/08/20 11:04 [place] % (Auto) 10.4 % (3-14) 01/08/20 11:04 Eos % (Auto) 1.4 % (2-4) L 01/08/20 11:04 Baso % (Auto) 0.9 % (0-2) 01/08/20 11:04 Neut # (Auto) 1800 /uL (3760-9748) 01/08/20 11:04 Lymph # (Auto) 1100 /uL (7061-5264) 01/08/20 11:04 [place] # (Auto) 300 /uL (0-900) 01/08/20 11:04 Eos # (Auto) 0 /uL (0-450) 01/08/20 11:04 Baso # (Auto) 0 /uL (0-100) 01/08/20 11:04 Sodium 138 mmol/L (137-145) 01/08/20 11:04 Potassium 5.0 mmol/L (3.4-5.1) 01/08/20 11:04 Chloride 105 mmol/L (98-107) 01/08/20 11:04 Carbon Dioxide 28 mmol/L (22-32) 01/08/20 11:04 BUN 22 mg/dL (9-20) H 01/08/20 11:04 Creatinine 0.86 mg/dL (0.66-1.25) 01/08/20 11:04 Estimated GFR > 60.0 mL/min (>60) 01/08/20 11:04 BUN/Creatinine Ratio 25.6 (6-22) H 01/08/20 11:04 Glucose 99 mg/dL (80-110) 01/08/20 11:04 Calcium 9.6 mg/dL (8.4-10.2) 01/08/20 11:04 Iron 97 ug/dL (49-181) 01/08/20 11:17 TIBC 271 ug/dL (261-462) 01/08/20 11:17 % Saturation 36 % (20-50) 01/08/20 11:17 Transferrin 214 mg/dL (206-381) 01/08/20 11:17 Ferritin 103 ng/mL (18-464) 01/08/20 11:17 Total Bilirubin 0.6 mg/dL (0.2-1.3) 01/08/20 11:04 AST 31 IU/L (17-59) 01/08/20 11:04 ALT 23 IU/L (<50) 01/08/20 11:04 Alkaline Phosphatase 52 U/L (38-126) 01/08/20 11:04 Lactate Dehydrogenase 337 U/L (313-618) 01/08/20 11:04 Total Protein 7.1 g/dL (6.3-8.2) 01/08/20 11:04 Albumin 4.4 g/dL (3.5-5.0) 01/08/20 11:04 Globulin 2.7 g/dL (1.7-4.1) 01/08/20 11:04 Albumin/Globulin Ratio 1.6 (1.0-2.8) 01/08/20 11:04 - Imaging Additional studies: Procedures Colonoscopy (01/20/11) Injection or infusion of other therapeutic or prophylactic substance (01/25/14) Assessment and Plan (1) Leukopenia Overview: 68-year-old gentleman was referred here to evaluate the chronic low white blood cell count and anemia on oral iron supplementation. Assessment: I talked with the patient that mild leukopenia has multiple etiologies. One of the common causes is medication. Patient said that he has never had any problems until after the laminectomy. Based on Dr. Sandra Cox's note, patient was treated with 5 FU for actinic keratosis. And the use of 5 FU was coincide with the patient's low white cell count in 2010 and then probably around [id number]. Thereafter patient has not taken any 5-FU. In addition, patient had probably iron deficiency anemia, and he has been taking oral irons all the time. He said that if he misses the doses of iron, he will feel winded. I talked with the patient that I will obtain blood samples to check for CBC, CMP and iron status today. Then, I will have the patient come back in about 6 weeks to repeat the lab tests. If they are stable and normal, I think no further tests are necessary. If the are low, patient may need bone marrow aspiration and biopsy. During this interval, I recommended that patient try to stop oral iron pills, that may have masked the underlying iron deficiency or bleeding events. Plan: CBC, CMP, Iron panel, Ferritni today RTC in 6 weeks and repeat the tests (2) Anemia See above
[2020-01-08 11:15] LABS: Add Manual Diff / Slide Review NO; Basophils Absolute Auto 0 /uL (0-100); Basophils Percent Auto 0.9 % (0-2); Eosinophils Absolute Auto 0 /uL (0-450); Eosinophils Percent Auto 1.4 % (2-4); Hematocrit 41.2 % (41-53); Hemoglobin 14.1 g/dL (13.5-17.5); Lymphocytes Absolute Auto 1100 /uL (1100-4500); Lymphocytes Percent Auto 33.2 % (25-40); Mean Corpuscular HGB Conc 34.1 % (30-36); Mean Corpuscular Hemoglobin 30.6 PG (26-34); Mean Corpuscular Volume 89.6 fL (80-100); Monocytes Absolute Auto 300 /uL (0-900); Monocytes Percent Auto 10.4 % (3-14); Neutrophils Absolute Auto 1800 /uL (1500-7000); Neutrophils Percent Auto 54.1 % (50-75); Platelet Count 188 X10^3/uL (150-400); Red Cell Distribution Width 13.1 % (11.6-14.8); White Blood Cell Count 3.3 X10^3/uL (4.5-11.0)
[2020-01-08 11:27] LABS: Alanine Aminotransferase 23 IU/L (<50); Albumin 4.4 g/dL (3.5-5.0); Albumin Globulin Ratio 1.6 (1.0-2.8); Alkaline Phosphatase 52 U/L (38-126); Aspartate Aminotransferase 31 IU/L (17-59); BUN Creatinine Ratio 25.6 (6-22); Bilirubin Total 0.6 mg/dL (0.2-1.3); Blood Urea Nitrogen 22 mg/dL (9-20); Calcium 9.6 mg/dL (8.4-10.2); Carbon Dioxide 28 mmol/L (22-32); Chloride 105 mmol/L (98-107); Estimated Glomerular Filt Rate > 60.0 mL/min (>60); Globulin 2.7 g/dL (1.7-4.1); Glucose 99 mg/dL (80-110); HEMOLYSIS < 15 (0-50); Lactate Dehydrogenase 337 U/L (313-618); Sodium 138 mmol/L (137-145); Total Protein 7.1 g/dL (6.3-8.2)
[2020-01-08 11:37] LABS: HEMOLYSIS < 15 (0-50); Iron 97 ug/dL (49-181)
[2020-01-08 11:47] LABS: Percent Iron Saturation 36 % (20-50); Total Iron Binding Capacity 271 ug/dL (261-462); Transferrin 214 mg/dL (206-381)
[2020-01-08 12:15] LABS: Ferritin 103 ng/mL (18-464)
[2020-01-08 19:17] LABS: Folate > 20.0 ng/mL (2.76-20.0); Vitamin B12 957 pg/mL (239-931)
[2020-01-12 11:12] LABS: Methylmalonic Acid,Serum 107 nmol/L (0-378)
[2020-02-18 12:32] LABS: Add Manual Diff / Slide Review NO; Basophils Absolute Auto 0 /uL (0-100); Basophils Percent Auto 0.8 % (0-2); Eosinophils Absolute Auto 0 /uL (0-450); Eosinophils Percent Auto 0.8 % (2-4); Hemoglobin 14.7 g/dL (13.5-17.5); Lymphocytes Absolute Auto 1200 /uL (1100-4500); Lymphocytes Percent Auto 35.6 % (25-40); Mean Corpuscular HGB Conc 34.1 % (30-36); Mean Corpuscular Hemoglobin 30.7 PG (26-34); Mean Corpuscular Volume 89.9 fL (80-100); Monocytes Absolute Auto 300 /uL (0-900); Monocytes Percent Auto 9.5 % (3-14); Neutrophils Absolute Auto 1800 /uL (1500-7000); Neutrophils Percent Auto 53.3 % (50-75); Platelet Count 213 X10^3/uL (150-400); Red Blood Cell Count 4.78 X10^6/uL (4.5-5.9); Red Cell Distribution Width 13.2 % (11.6-14.8); White Blood Cell Count 3.3 X10^3/uL (4.5-11.0)
[2020-02-18 12:39] LABS: Alanine Aminotransferase 19 IU/L (<50); Albumin 4.5 g/dL (3.5-5.0); Albumin Globulin Ratio 1.5 (1.0-2.8); Alkaline Phosphatase 53 U/L (38-126); Aspartate Aminotransferase 28 IU/L (17-59); Bilirubin Total 0.8 mg/dL (0.2-1.3); Blood Urea Nitrogen 23 mg/dL (9-20); Calcium 9.4 mg/dL (8.4-10.2); Carbon Dioxide 28 mmol/L (22-32); Chloride 105 mmol/L (98-107); Estimated Glomerular Filt Rate > 60.0 mL/min (>60); Glucose 101 mg/dL (80-110); HEMOLYSIS < 15 (0-50); Potassium 4.7 mmol/L (3.4-5.1); Sodium 137 mmol/L (137-145); Total Protein 7.5 g/dL (6.3-8.2)
[2020-02-18 12:56] LABS: HEMOLYSIS < 15 (0-50); Iron 123 ug/dL (49-181)
[2020-02-18 13:07] LABS: Percent Iron Saturation 45 % (20-50); Total Iron Binding Capacity 275 ug/dL (261-462); Transferrin 212 mg/dL (206-381)
[2020-02-18 13:15] LABS: Ferritin 129 ng/mL (18-464)
[2020-02-18 13:45] LABS: Folate > 20.0 ng/mL (2.76-20.0); Vitamin B12 860 pg/mL (239-931)
[2020-02-19 15:53] VITALS: BP 122/81; PULSE 54; RESP 18; TEMP 36.6; O2SAT 99
--- NOTE | 2020-02-19 15:59 | P.PNONC_ITS ---
PN -Subjective Interval history: Brien Trejo is a 70 year old male. He was referred by Dr. Sandra Cox MD for for evaluation of mild chronic low white blood cell count. Patient himself claimed that he had never had any anemia or low blood counts until after a laminectomy probably around 2009. He was evaluated in March [address] The odore Almonte at [facility]. At that time patient carried a diagnosis of anemia and a mild neutropenia which was believed to be secondary to iron deficiency and folic acid deficiency. His lowest WBC was 2.8 on 07/01/2010. His H/H and PLT were completely within the normal range. But he was having pain and splitting at the corners of the mouth splitting and nail splitting. The signs and symptoms went away when he started taking ferrous sulfate and folate. Thereafter, her WBC has been largely normal. This happened again about 1-2 years later after another treatment with 5-FU. Brien has not had any 5-FU treatment for several years now. Interval Events: He and his presented here today for review of the laboratory test results. Clinically he does not have any new signs or symptoms. - Patient Self-Reported Symptoms SR Genitourinary issues: Frequent urination SR Musculoskeletal issues: Muscle pain or cramps, Back or neck pain SR Neuro issues: Numbness or tingling Home Medications and Allergies Home Medications Medication Instructions Recorded Confirmed Type Eliquis 5 mg PO BID #0 12/20/16 02/19/20 History clonazepam 0.5 mg PO TID PRN #0 12/20/16 02/19/20 History diazepam 2 mg PO BEDTIME #0 12/20/16 02/19/20 History escitalopram oxalate 20 mg PO DAILY 12/11/17 02/19/20 History fluticasone propionate 1 spray INTRANASAL DAILY 12/11/17 02/19/20 History lisinopril 10 mg PO DAILY 12/11/17 02/19/20 History magnesium oxide 400 mg PO DAILY 12/11/17 02/19/20 History meloxicam 15 mg PO DAILY PRN 12/11/17 02/19/20 History metoprolol succinate 50 mg PO BID 12/11/17 02/19/20 History omeprazole 20 mg PO DAILY PRN 12/11/17 02/19/20 History trazodone 100 mg PO BEDTIME 12/11/17 02/19/20 History finasteride 5 mg tablet 5 mg PO DAILY 01/05/20 02/19/20 History hydrocodone-acetaminophen 1 tab PO BID PRN 01/08/20 02/19/20 History Allergies Allergy/AdvReac Type Severity Reaction Status Date / Time Milk Containing Products Allergy Unknown Diarrhea Verified 01/05/20 08:55 Penicillins [PENICILLINS] Allergy Unknown Hallucinations, Verified 01/05/20 08:55 Fever whey Allergy Unknown Diarrhea Verified 01/05/20 08:55 Exam Vital signs: Vital Signs Temp Pulse Resp BP Pulse Ox 02/19/20 15:53 98 F 54 L 18 122/81 99 Intake and Output 02/18/20 02/19/20 02/19/20 23:59 07:59 15:59 Other: Weight 86 kg Patient Weight 02/19/20 23:59 Weight 86 kg - Constitutional positive no acute distress, positive average body habitus, positive chronically ill appearing, positive cooperative - Routine HEENT Exam Head: Present: normocephalic, atraumatic. Absent: cushingoid faces, abrasion, laceration - Routine Neck Exam Present: supple, full ROM. Absent: normal carotid upstroke, lymphadenopathy, thyromegaly, swelling - Routine Respiratory Exam Present: Clear to auscultation bilaterally. Absent: decreased breath sounds, accessory muscle use, rales, rhonchi, wheezes, crackles - Routine Cardiovascular Exam Present: RRR, S1, S2, gallop, rubs, S3, S4 - Routine Abdominal Exam Present: soft. Absent: tenderness, distended - Routine Extremities Exam Absent: edema - Routine Neurological Exam Present: alert, oriented X3, CN II-XII intact. Absent: sensory deficit, motor deficit - Routine Psychiatric Exam Present: normal affect, normal thought process Results - Labs Laboratory Last Values WBC 3.3 X10^3/uL (4.5-11.0) L 02/18/20 12:16 RBC 4.78 X10^6/uL (4.5-5.9) 02/18/20 12:16 Hgb 14.7 g/dL (13.5-17.5) 02/18/20 12:16 Hct 43.0 % (41-53) 02/18/20 12:16 MCV 89.9 fL (80-100) 02/18/20 12:16 MCH 30.7 PG (26-34) 02/18/20 12:16 MCHC 34.1 % (30-36) 02/18/20 12:16 RDW 13.2 % (11.6-14.8) 02/18/20 12:16 Plt Count 213 X10^3/uL (150-400) 02/18/20 12:16 Neut % (Auto) 53.3 % (50-75) 02/18/20 12:16 Lymph % (Auto) 35.6 % (25-40) 02/18/20 12:16 [place] % (Auto) 9.5 % (3-14) 02/18/20 12:16 Eos % (Auto) 0.8 % (2-4) L 02/18/20 12:16 Baso % (Auto) 0.8 % (0-2) 02/18/20 12:16 Neut # (Auto) 1800 /uL (0040-5769) 02/18/20 12:16 Lymph # (Auto) 1200 /uL (0305-9855) 02/18/20 12:16 [place] # (Auto) 300 /uL (0-900) 02/18/20 12:16 Eos # (Auto) 0 /uL (0-450) 02/18/20 12:16 Baso # (Auto) 0 /uL (0-100) 02/18/20 12:16 Sodium 137 mmol/L (137-145) 02/18/20 12:16 Potassium 4.7 mmol/L (3.4-5.1) 02/18/20 12:16 Chloride 105 mmol/L (98-107) 02/18/20 12:16 Carbon Dioxide 28 mmol/L (22-32) 02/18/20 12:16 BUN 23 mg/dL (9-20) H 02/18/20 12:16 Creatinine 0.96 mg/dL (0.66-1.25) 02/18/20 12:16 Estimated GFR > 60.0 mL/min (>60) 02/18/20 12:16 BUN/Creatinine Ratio 24.0 (6-22) H 02/18/20 12:16 Glucose 101 mg/dL (80-110) 02/18/20 12:16 Calcium 9.4 mg/dL (8.4-10.2) 02/18/20 12:16 Iron 123 ug/dL (49-181) 02/18/20 12:16 TIBC 275 ug/dL (261-462) 02/18/20 12:16 % Saturation 45 % (20-50) 02/18/20 12:16 Transferrin 212 mg/dL (206-381) 02/18/20 12:16 Ferritin 129 ng/mL (18-464) 02/18/20 12:16 Total Bilirubin 0.8 mg/dL (0.2-1.3) 02/18/20 12:16 AST 28 IU/L (17-59) 02/18/20 12:16 ALT 19 IU/L (<50) 02/18/20 12:16 Alkaline Phosphatase 53 U/L (38-126) 02/18/20 12:16 Lactate Dehydrogenase 337 U/L (313-618) 01/08/20 11:04 Total Protein 7.5 g/dL (6.3-8.2) 02/18/20 12:16 Albumin 4.5 g/dL (3.5-5.0) 02/18/20 12:16 Globulin 3.0 g/dL (1.7-4.1) 02/18/20 12:16 Albumin/Globulin Ratio 1.5 (1.0-2.8) 02/18/20 12:16 Vitamin B12 860 pg/mL (239-931) 02/18/20 12:16 Methylmalonic Acid 107 nmol/L (0-378) 01/08/20 11:17 Folate > 20.0 ng/mL (2.76-20.0) H 02/18/20 12:16 Ref Lab Notation Comment (.) 01/08/20 11:17 - Imaging Additional studies: Procedures Colonoscopy (01/20/11) Injection or infusion of other therapeutic or prophylactic substance (01/25/14) Assessment and Plan (1) Leukopenia Overview: 70-year-old gentleman was referred here to evaluate the chronic low white blood cell count and anemia Assessment: I reviewed the lab results with the patient. Patient's total white cell count is 3.3. ANC and ALC were within the normal range. Vitamin B12, methylmalonic acid, and folate were all within the normal range. I talked with patient that I do not think there is any underlying hematological disorder. I do not think that bone marrow aspiration biopsy is indicated at this point. We continue active surveillance. Plan: RTC in 6 months, CBC, CMP, Iron panel, Ferritin, MMA, B12, folic acid (2) Anemia See above
[2020-02-20 21:40] LABS: Methylmalonic Acid,Serum 100 nmol/L (0-378)
[2020-07-16 12:17] LABS: HEMOLYSIS < 15 (0-50); Iron 121 ug/dL (49-181)
[2020-07-16 12:28] LABS: Percent Iron Saturation 38 % (20-50); Total Iron Binding Capacity 315 ug/dL (261-462); Transferrin 239 mg/dL (206-381)
[2020-07-16 12:50] LABS: Vitamin B12 938 pg/mL (239-931)
[2020-07-16 12:52] LABS: Ferritin 118 ng/mL (18-464)
[2020-07-16 13:00] LABS: Prostate Specific Antigen 1.15 ng/mL (0.10-4.00)
[2020-07-16 13:35] LABS: Folate 9.4 ng/mL (2.76-20.0)
[2020-07-19 23:41] LABS: Methylmalonic Acid,Serum 106 nmol/L (0-378)
--- NOTE | 2020-07-26 11:01 | P.PNONC_ITS ---
PN -Subjective Interval history: Brien Trejo is a 70 year old male. He was referred by Dr. Sandra Cox MD for evaluation of mild chronic low white blood cell count. Patient himself claimed that he had never had any anemia or low blood counts until after a laminectomy probably around 2009. He was evaluated in March [address] Justin Almonte at [facility]. At that time patient carried a diagnosis of anemia and a mild neutropenia which was believed to be secondary to iron deficiency and folic acid deficiency. His lowest WBC was 2.8 on 07/01/2010. His H/H and PLT were completely within the normal range. But he was having pain and splitting at the corners of the mouth splitting and nail splitting. The signs and symptoms went away when he started taking ferrous sulfate and folate. Thereafter, her WBC has been largely normal. This happened again about 1-2 years later after another treatment with 5-FU. Brien has not had any 5-FU treatment for several years now. Interval Events: He and his presented here today for review of the laboratory test results. Clinically he does not have any new signs or symptoms. - Patient Self-Reported Symptoms SR Genitourinary issues: Frequent urination SR Musculoskeletal issues: Muscle pain or cramps, Back or neck pain SR Neuro issues: Numbness or tingling - Additional ROS All systems PM: reviewed and no additional remarkable complaints except as stated Home Medications and Allergies Home Medications Medication Instructions Recorded Confirmed Type Eliquis 5 mg PO BID #0 12/20/16 02/19/20 History clonazepam 0.5 mg PO TID PRN #0 12/20/16 02/19/20 History diazepam 2 mg PO BEDTIME #0 12/20/16 02/19/20 History escitalopram oxalate 20 mg PO DAILY 12/11/17 02/19/20 History fluticasone propionate 1 spray INTRANASAL DAILY 12/11/17 02/19/20 History lisinopril 10 mg PO DAILY 12/11/17 02/19/20 History magnesium oxide 400 mg PO DAILY 12/11/17 02/19/20 History meloxicam 15 mg PO DAILY PRN 12/11/17 02/19/20 History metoprolol succinate 50 mg PO BID 12/11/17 02/19/20 History omeprazole 20 mg PO DAILY PRN 12/11/17 02/19/20 History finasteride 5 mg tablet 5 mg PO DAILY 01/05/20 02/19/20 History hydrocodone-acetaminophen 1 tab PO BID PRN 01/08/20 02/19/20 History ferrous sulfate 325 mg PO DAILY 07/26/20 07/26/20 History Allergies Allergy/AdvReac Type Severity Reaction Status Date / Time Milk Containing Products Allergy Unknown Diarrhea Verified 01/05/20 08:55 Penicillins [PENICILLINS] Allergy Unknown Hallucinations, Verified 01/05/20 08:55 Fever whey Allergy Unknown Diarrhea Verified 01/05/20 08:55 Exam Vital signs: 07/26/20 13:21 Last Vital Signs Temp 98 F 02/19/20 15:53 Pulse 59 L 07/26/20 11:08 Resp 16 07/26/20 11:08 BP 129/79 07/26/20 11:08 Pulse Ox 99 02/19/20 15:53 - Constitutional positive no acute distress, positive cooperative - Routine HEENT Exam Head: Present: normocephalic, atraumatic Eye: Present: EOMI, PERRL, normal accommodation. Absent: conjunctival icterus ENT: Present: mucous membranes moist - Routine Neck Exam Present: supple. Absent: lymphadenopathy, thyromegaly - Routine Chest/Breast/Axilla Exam Axillae: Absent: lymphadenopathy - Routine Respiratory Exam Present: Clear to auscultation bilaterally. Absent: wheezes - Routine Cardiovascular Exam Present: RRR, S1, S2. Absent: murmur, gallop, rubs - Routine Abdominal Exam Present: soft. Absent: distended - Routine Extremities Exam Absent: edema - Routine Neurological Exam Present: alert, oriented X3, CN II-XII intact. Absent: sensory deficit, motor deficit - Routine Psychiatric Exam Present: normal affect Results - Labs Laboratory Last Values WBC 3.6 X10^3/uL (4.5-11.0) L 07/26/20 12:24 RBC 4.80 X10^6/uL (4.5-5.9) 07/26/20 12:24 Hgb 14.6 g/dL (13.5-17.5) 07/26/20 12:24 Hct 42.4 % (41-53) 07/26/20 12:24 MCV 88.3 fL (80-100) 07/26/20 12:24 MCH 30.3 PG (26-34) 07/26/20 12:24 MCHC 34.4 % (30-36) 07/26/20 12:24 RDW 13.6 % (11.6-14.8) 07/26/20 12:24 Plt Count 196 X10^3/uL (150-400) 07/26/20 12:24 Neut % (Auto) 58.7 % (50-75) 07/26/20 12:24 Lymph % (Auto) 30.3 % (25-40) 07/26/20 12:24 Forrest % (Auto) 9.4 % (3-14) 07/26/20 12:24 Eos % (Auto) 0.7 % (2-4) L 07/26/20 12:24 Baso % (Auto) 0.9 % (0-2) 07/26/20 12:24 Neut # (Auto) 2100 /uL (6354-2219) 07/26/20 12:24 Lymph # (Auto) 1100 /uL (4922-6199) 07/26/20 12:24 Forrest # (Auto) 300 /uL (0-900) 07/26/20 12:24 Eos # (Auto) 0 /uL (0-450) 07/26/20 12:24 Baso # (Auto) 0 /uL (0-100) 07/26/20 12:24 Sodium 140 mmol/L (137-145) 07/26/20 12:24 Potassium 4.5 mmol/L (3.4-5.1) 07/26/20 12:24 Chloride 105 mmol/L (98-107) 07/26/20 12:24 Carbon Dioxide 30 mmol/L (22-32) 07/26/20 12:24 BUN 15 mg/dL (9-20) 07/26/20 12:24 Creatinine 0.70 mg/dL (0.66-1.25) 07/26/20 12:24 Estimated GFR > 60.0 mL/min (>60) 07/26/20 12:24 BUN/Creatinine Ratio 21.4 (6-22) 07/26/20 12:24 Glucose 98 mg/dL (80-110) 07/26/20 12:24 Calcium 9.4 mg/dL (8.4-10.2) 07/26/20 12:24 Iron 121 ug/dL (49-181) 07/16/20 11:37 TIBC 315 ug/dL (261-462) 07/16/20 11:37 % Saturation 38 % (20-50) 07/16/20 11:37 Transferrin 239 mg/dL (206-381) 07/16/20 11:37 Ferritin 118 ng/mL (18-464) 07/16/20 11:37 Total Bilirubin 0.5 mg/dL (0.2-1.3) 07/26/20 12:24 AST 31 IU/L (17-59) 07/26/20 12:24 ALT 28 IU/L (<50) 07/26/20 12:24 Alkaline Phosphatase 56 U/L (38-126) 07/26/20 12:24 Lactate Dehydrogenase 337 U/L (313-618) 01/08/20 11:04 Total Protein 7.4 g/dL (6.3-8.2) 07/26/20 12:24 Albumin 4.4 g/dL (3.5-5.0) 07/26/20 12:24 Globulin 3.0 g/dL (1.7-4.1) 07/26/20 12:24 Albumin/Globulin Ratio 1.5 (1.0-2.8) 07/26/20 12:24 Prostate Specific Ag 1.15 ng/mL (0.10-4.00) 07/16/20 11:36 Vitamin B12 938 pg/mL (239-931) H 07/16/20 11:37 Methylmalonic Acid 106 nmol/L (0-378) 07/16/20 11:37 Folate 9.4 ng/mL (2.76-20.0) 07/16/20 11:37 Ref Lab Notation Comment (.) 07/16/20 11:37 - Imaging Additional studies: Procedures Colonoscopy (01/20/11) Injection or infusion of other therapeutic or prophylactic substance (01/25/14) Assessment and Plan (1) Leukopenia Overview: 70-year-old gentleman was referred here to evaluate the chronic low white blood cell count and anemia Assessment: I reviewed the lab results with the patient. Patient's total white cell count is 3.6. ANC and ALC were within the normal range. Vitamin B12, methylmalonic acid, and folate were all within the normal range. I talked with patient that I do not think there is any underlying hematological disorder. Am recommending that we continue current active surveillance. Patient can continue follow-up with primary care provider. And I will see the patient on as-needed basis. Plan: RTC PRN
[2020-07-26 11:08] VITALS: BP 129/79; PULSE 59; RESP 16
[2020-07-26 12:40] LABS: Add Manual Diff / Slide Review NO; Basophils Absolute Auto 0 /uL (0-100); Basophils Percent Auto 0.9 % (0-2); Eosinophils Absolute Auto 0 /uL (0-450); Eosinophils Percent Auto 0.7 % (2-4); Hematocrit 42.4 % (41-53); Hemoglobin 14.6 g/dL (13.5-17.5); Lymphocytes Absolute Auto 1100 /uL (1100-4500); Lymphocytes Percent Auto 30.3 % (25-40); Mean Corpuscular HGB Conc 34.4 % (30-36); Mean Corpuscular Hemoglobin 30.3 PG (26-34); Mean Corpuscular Volume 88.3 fL (80-100); Monocytes Absolute Auto 300 /uL (0-900); Monocytes Percent Auto 9.4 % (3-14); Neutrophils Absolute Auto 2100 /uL (1500-7000); Neutrophils Percent Auto 58.7 % (50-75); Platelet Count 196 X10^3/uL (150-400); Red Cell Distribution Width 13.6 % (11.6-14.8); White Blood Cell Count 3.6 X10^3/uL (4.5-11.0)
[2020-07-26 12:49] LABS: Alanine Aminotransferase 28 IU/L (<50); Albumin 4.4 g/dL (3.5-5.0); Albumin Globulin Ratio 1.5 (1.0-2.8); Alkaline Phosphatase 56 U/L (38-126); Aspartate Aminotransferase 31 IU/L (17-59); BUN Creatinine Ratio 21.4 (6-22); Bilirubin Total 0.5 mg/dL (0.2-1.3); Blood Urea Nitrogen 15 mg/dL (9-20); Calcium 9.4 mg/dL (8.4-10.2); Carbon Dioxide 30 mmol/L (22-32); Chloride 105 mmol/L (98-107); Estimated Glomerular Filt Rate > 60.0 mL/min (>60); Glucose 98 mg/dL (80-110); HEMOLYSIS < 15 (0-50); Potassium 4.5 mmol/L (3.4-5.1); Sodium 140 mmol/L (137-145); Total Protein 7.4 g/dL (6.3-8.2)
== END ==
PROVIDERS: Specialist; PCP Family Medicine; Referring Provider Family Medicine; Visit Provider Internal Medicine Hematology & Oncology
DX: D72.819 Decreased white blood cell count, unspecified (principal); D64.9 Anemia, unspecified
CPT/HCPCS: 36415; 80053; 82607; 82728; 82746; 83540; 83550; 83615; 83921; 84153; 85025; 99204; 99214

== ENCOUNTER → 2020-08-19 09:47 | Outpatient (CLI) | payer MEDICARE, OTHER, SELFPAY ==
[2020-08-19] MEDS: COVID-19 VACC #2, MRNA(MOD) 100 MCG/0.5 ML VIAL IM (09:58)
== END ==
PROVIDERS: PCP Family Medicine; Visit Provider Internal Medicine
DX: Z23 Encounter for immunization (principal)
CPT/HCPCS: 0012A; 91301

== ENCOUNTER → 2020-11-03 11:52 | Outpatient (CLI) | payer MEDICARE, OTHER, SELFPAY ==
[2020-11-03 13:10] LABS: Add Manual Diff / Slide Review NO; Basophils Absolute Auto 0 /uL (0-100); Basophils Percent Auto 1.1 % (0-2); Eosinophils Absolute Auto 0 /uL (0-450); Eosinophils Percent Auto 1.1 % (2-4); Hematocrit 41.5 % (41-53); Hemoglobin 14.3 g/dL (13.5-17.5); Lymphocytes Absolute Auto 1100 /uL (1100-4500); Lymphocytes Percent Auto 34.4 % (25-40); Mean Corpuscular HGB Conc 34.5 % (30-36); Monocytes Absolute Auto 300 /uL (0-900); Monocytes Percent Auto 10.7 % (3-14); Neutrophils Absolute Auto 1600 /uL (1500-7000); Neutrophils Percent Auto 52.7 % (50-75); Platelet Count 190 X10^3/uL (150-400); Red Blood Cell Count 4.62 X10^6/uL (4.5-5.9); Red Cell Distribution Width 12.3 % (11.6-14.8); White Blood Cell Count 3.1 X10^3/uL (4.5-11.0)
[2020-11-03 13:41] LABS: Alanine Aminotransferase 24 IU/L (<50); Albumin 4.3 g/dL (3.5-5.0); Albumin Globulin Ratio 1.6 (1.0-2.8); Alkaline Phosphatase 53 U/L (38-126); Aspartate Aminotransferase 37 IU/L (17-59); BUN Creatinine Ratio 23.1 (6-22); Bilirubin Total 0.6 mg/dL (0.2-1.3); Blood Urea Nitrogen 18 mg/dL (9-20); Calcium 9.5 mg/dL (8.4-10.2); Carbon Dioxide 26 mmol/L (22-32); Chloride 103 mmol/L (98-107); Cholesterol 184 mg/dL (140-199); Estimated Glomerular Filt Rate > 60.0 mL/min (>60); Globulin 2.7 g/dL (1.7-4.1); Glucose 93 mg/dL (80-110); HDL Cholesterol 57 mg/dL (40-60); HEMOLYSIS < 15 (0-50); LDL Cholesterol Calculated 116 mg/dL (<100); Potassium 4.7 mmol/L (3.4-5.1); Sodium 138 mmol/L (137-145); Triglycerides 54 mg/dL (35-150)
[2020-11-03 13:47] LABS: HEMOLYSIS < 15 (0-50); Iron 108 ug/dL (49-181)
[2020-11-03 13:57] LABS: Percent Iron Saturation 36 % (20-50); Total Iron Binding Capacity 297 ug/dL (261-462); Transferrin 235 mg/dL (206-381)
[2020-11-03 15:51] LABS: Thyroid Stimulating Hormone 1.92 uIU/mL (0.47-4.68)
[2020-11-03 17:22] LABS: Prostate Specific Antigen 1.01 ng/mL (0.10-4.00)
[2020-11-03 17:26] LABS: Ferritin 101 ng/mL (18-464)
== END ==
PROVIDERS: PCP Family Medicine; Referring Provider Family Medicine; Visit Provider Family Medicine
DX: E78.5 Hyperlipidemia, unspecified (principal); E61.1 Iron deficiency; E55.9 Vitamin D deficiency, unspecified; G89.21 Chronic pain due to trauma; Z51.81 Encounter for therapeutic drug level monitoring; I10 Essential (primary) hypertension; N40.1 Benign prostatic hyperplasia with lower urinary tract symptoms
CPT/HCPCS: 36415; 80053; 80061; 82306; 82728; 83540; 83550; 84153; 84443; 85025

== ENCOUNTER → 2020-12-01 15:02 | Outpatient (ROUT) | payer MEDICARE, OTHER, SELFPAY ==
[2020-12-01 15:21] LABS: COVID19 -Nasal RAPID Negative (Negative)
== END ==
PROVIDERS: PCP Family Medicine; Visit Provider Family Medicine
DX: Z11.52 Encounter for screening for COVID-19 (principal)
CPT/HCPCS: 87635

== ENCOUNTER → 2021-01-14 09:33 | Outpatient (CLI) | payer MEDICARE, OTHER, SELFPAY ==
[2021-01-14 11:09] LABS: Prostate Specific Antigen 0.988 ng/mL (0.10-4.00)
== END ==
PROVIDERS: PCP Family Medicine; Referring Provider Specialist; Visit Provider Specialist
DX: N13.8 Other obstructive and reflux uropathy (principal); N40.1 Benign prostatic hyperplasia with lower urinary tract symptoms
CPT/HCPCS: 36415; 84153

== ENCOUNTER → 2021-03-30 13:31 | Outpatient (ROUT) | payer MEDICARE, OTHER, SELFPAY ==
[2021-03-30 14:05] LABS: COVID19 -Nasal RAPID Negative (Negative)
== END ==
PROVIDERS: PCP Family Medicine; Visit Provider Family Medicine
DX: Z20.822 Contact with and (suspected) exposure to COVID-19 (principal)
CPT/HCPCS: 87635

== ENCOUNTER → 2021-08-25 12:00 | Outpatient (CLI) | payer MEDICARE, OTHER, SELFPAY ==
[2021-08-26 21:13] LABS: Deamidated Gliadin Ab IgA 7 units (0-19); Deamidated Gliadin Ab IgG 2 units (0-19); Immunoglobulin A,Qn 241 mg/dL (61-437); t-Transglutaminase IgA <2 U/mL (0-3)
== END ==
PROVIDERS: PCP Family Medicine; Referring Provider Family Medicine; Visit Provider Family Medicine
DX: D50.9 Iron deficiency anemia, unspecified (principal)
CPT/HCPCS: 36415; 82784; 83516

== ENCOUNTER → 2021-10-28 10:06 | Outpatient (CLI) | payer MEDICARE, OTHER, SELFPAY ==
[2021-10-28 11:34] LABS: COVID19 -Nasal RAPID Negative (Negative)
== END ==
PROVIDERS: PCP Family Medicine; Visit Provider Surgery
DX: Z20.822 Contact with and (suspected) exposure to COVID-19 (principal); Z01.812 Encounter for preprocedural laboratory examination
CPT/HCPCS: 87635; C9803

== ENCOUNTER → 2021-10-29 12:27 | Outpatient (CLI) | payer MEDICARE, OTHER, SELFPAY ==
[2021-10-31 06:34] LABS: Immunoglobulin A 263 mg/dL (61-437)
[2021-10-31 15:12] LABS: Deamidated Gliadin Ab IgA 5 units (0-19); Deamidated Gliadin Ab IgG 3 units (0-19); Immunoglobulin A,Qn 275 mg/dL (61-437); t-Transglutaminase IgA <2 U/mL (0-3)
[2021-11-01 22:11] LABS: Thyroglobulin Antibodies < 1.0 IU/mL (0.0-0.9)
== END ==
PROVIDERS: PCP Family Medicine; Referring Provider Family Medicine; Visit Provider Family Medicine
DX: D50.9 Iron deficiency anemia, unspecified (principal)
CPT/HCPCS: 36415; 82784; 83516; 84432; 86800

== ENCOUNTER 2021-10-31 12:21 | Day surgery (SDC) | payer MEDICARE, OTHER, SELFPAY ==
[2021-10-28 11:40] VITALS: BMI 25.4
[2021-10-31 12:39] VITALS: BMI 25.4
[2021-10-31 13:00] VITALS: BP 141/85; PULSE 53; RESP 16; TEMP 36.8; O2SAT 99
[2021-10-31] MEDS: LACTATED RINGERS 1,000 ML 42 ML IV (13:06)
--- NOTE | 2021-10-31 13:10 | PM.PREOP ---
Pre-operative Note COVID-19 COVID-19 status: Negative Result date/Date tested (Pos, Neg/Pending): 10/28/21 Interval Note History & Physical reviewed/Exam performed by Physician: Yes Changes to H&P: No ASA Class (for procedural sedation): II
[2021-10-31] MEDS: BUPIVACAINE LIPOSOME 266 MG/20 ML VIAL INJ (14:58)
[2021-10-31] MEDS: ONABOTULINUMTOXINA 100 UNIT VIAL INJ (14:58)
--- NOTE | 2021-10-31 14:58 | SUR.OPER ---
Lithotomy on padded OR bed, head on pillow, arms secured on padded arm boards at <90 degrees abduction. Legs secured in padded yellow fins stirrups.
--- NOTE | 2021-10-31 15:09 | P.OP_ITS ---
Operative Date/Time/Diagnoses Date of procedure: 10/31/21 Time of procedure: 15:09 Pre-op diagnosis: Chronic anal fissure Post-op diagnosis: other (Chronic anal fissure and internal hemorrhoids) Procedure & Clinicians Procedure: Examination under anesthesia and injection of Botox Same procedure as scheduled: Yes Surgeon: Tito Brooks Anesthesia Type: General Operative Notes Procedure in detail: The patient was brought to the operating room and placed on the table in the supine position. General anesthesia was induced via LMA. Legs were placed in high lithotomy position and the perineum was prepped and draped in the usual fashion. First a digital rectal exam was performed using plenty of lubricant in the center tone was noted to be above average. The anal sphincter was gradually dilated with 3 fingers. The Hill-Grullon retractor was inserted and the a noderm was examined. There did appear to be a chronic posterior anal fissure. There were significant internal hemorrhoids circumferentially. 10 units of Botox were injected in the left sphincter and another 10 units in the right sphincter. Finally, about 6 mL of Exparel were injected around the fissure itself. The patient was awakened brought to recovery room EBL: 5 mL Post-operative Condition: stable Disposition: PACU
[2021-10-31 15:15] VITALS: BP 124/98; PULSE 62; RESP 16; TEMP 35.7; O2SAT 98
[2021-10-31 15:20] VITALS: BP 132/75; PULSE 55; RESP 16; TEMP 37.3; O2SAT 98
[2021-10-31 15:28] VITALS: BP 113/75; PULSE 59; RESP 15; O2SAT 98
[2021-10-31 15:33] VITALS: BP 122/72; PULSE 59; RESP 16; TEMP 36.8; O2SAT 99
[2021-10-31 16:00] VITALS: BP 121/82; PULSE 53; RESP 16; TEMP 36.7; O2SAT 97
== END 2021-10-31 16:15 | disposition home or self-care (01) ==
PROVIDERS: PCP Family Medicine; Referring Provider Surgery; Visit Provider Surgery
PROC: (CPT 45990; principal; 2021-10-31 13:00)
DX: K60.1 Chronic anal fissure (principal); K64.8 Other hemorrhoids
CPT/HCPCS: 46500; C9290; J0585; J3010

== ENCOUNTER → 2022-03-21 13:53 | Outpatient (CLI) | payer MEDICARE, OTHER, SELFPAY ==
[2022-03-21 14:59] LABS: Add Manual Diff / Slide Review NO; Basophils Absolute Auto 0 /uL (0-100); Basophils Percent Auto 0.6 % (0-2); Eosinophils Absolute Auto 0 /uL (0-450); Eosinophils Percent Auto 0.9 % (2-4); Hematocrit 42.6 % (41-53); Hemoglobin 14.6 g/dL (13.5-17.5); Lymphocytes Absolute Auto 900 /uL (1100-4500); Lymphocytes Percent Auto 28.8 % (25-40); Mean Corpuscular HGB Conc 34.4 % (30-36); Mean Corpuscular Hemoglobin 30.6 PG (26-34); Monocytes Absolute Auto 300 /uL (0-900); Monocytes Percent Auto 11.3 % (3-14); Neutrophils Absolute Auto 1800 /uL (1500-7000); Neutrophils Percent Auto 58.4 % (50-75); Platelet Count 205 X10^3/uL (150-400); Red Blood Cell Count 4.79 X10^6/uL (4.5-5.9); Red Cell Distribution Width 12.8 % (11.6-14.8); White Blood Cell Count 3.1 X10^3/uL (4.5-11.0)
[2022-03-21 15:11] LABS: Alanine Aminotransferase 30 IU/L (<50); Albumin 4.4 g/dL (3.5-5.0); Albumin Globulin Ratio 1.3 (1.0-2.8); Alkaline Phosphatase 60 U/L (38-126); Aspartate Aminotransferase 33 IU/L (17-59); BUN Creatinine Ratio 22.7 (6-22); Bilirubin Total 0.5 mg/dL (0.2-1.3); Blood Urea Nitrogen 20 mg/dL (9-20); Calcium 9.1 mg/dL (8.4-10.2); Carbon Dioxide 27 mmol/L (22-32); Chloride 103 mmol/L (98-107); Cholesterol 205 mg/dL (140-199); Estimated Glomerular Filt Rate > 60 mL/min (>60); Globulin 3.3 g/dL (1.7-4.1); Glucose 93 mg/dL (80-110); HDL Cholesterol 48 mg/dL (40-60); HEMOLYSIS < 15 (0-50); Potassium 4.5 mmol/L (3.4-5.1); Sodium 141 mmol/L (137-145); Total Protein 7.7 g/dL (6.3-8.2)
[2022-03-21 15:38] LABS: Prostate Specific Antigen 1.59 ng/mL (0.10-4.00)
== END ==
PROVIDERS: PCP Family Medicine; Referring Provider Family Medicine; Visit Provider Family Medicine
DX: D50.8 Other iron deficiency anemias (principal); E78.5 Hyperlipidemia, unspecified; N40.1 Benign prostatic hyperplasia with lower urinary tract symptoms; I10 Essential (primary) hypertension; I48.91 Unspecified atrial fibrillation
CPT/HCPCS: 36415; 80053; 82465; 83718; 84153; 85025

== ENCOUNTER → 2022-04-26 11:57 | Outpatient (CLI) | payer MEDICARE, OTHER, SELFPAY ==
[2022-04-26 13:00] LABS: Add Manual Diff / Slide Review NO; Basophils Absolute Auto 0 /uL (0-100); Basophils Percent Auto 0.7 % (0-2); Eosinophils Absolute Auto 0 /uL (0-450); Hematocrit 43.5 % (41-53); Hemoglobin 14.7 g/dL (13.5-17.5); Lymphocytes Absolute Auto 1000 /uL (1100-4500); Lymphocytes Percent Auto 26.4 % (25-40); Mean Corpuscular HGB Conc 33.8 % (30-36); Mean Corpuscular Volume 88.6 fL (80-100); Monocytes Absolute Auto 400 /uL (0-900); Monocytes Percent Auto 10.5 % (3-14); Neutrophils Absolute Auto 2400 /uL (1500-7000); Neutrophils Percent Auto 61.4 % (50-75); Platelet Count 223 X10^3/uL (150-400); Red Blood Cell Count 4.91 X10^6/uL (4.5-5.9); Red Cell Distribution Width 12.5 % (11.6-14.8)
== END ==
PROVIDERS: PCP Family Medicine; Referring Provider Family Medicine; Visit Provider Family Medicine
DX: D72.819 Decreased white blood cell count, unspecified (principal)
CPT/HCPCS: 36415; 85025

== ENCOUNTER → 2022-05-16 13:31 | Outpatient (CLI) | payer MEDICARE, OTHER, SELFPAY ==
--- NOTE | 2022-05-16 13:32 | DI.ECHO.S_ITS ---
[place] [facility]---------+ [facility] +---------+ : : [address] : [address] : : : : [id number] : : : : Phone: [phone]+ Echocardiogram Report + + :Name: FARHANA MCKAY Study Date: 05/16/2022 Height: 74 in : :[facility] ReadingLocation: Weight: 195 lb : : Gender: Male BSA: 2.1 m2 : :: 1950 Age: 72 yrs BP: 128/93 mmHg: :Reason For Study: Aortic, Ascending Aneurysm : :Ordering Physician: ALIA, : :VIBHA Performed By: Robi Denny : :Referring: VIBHA ROJO : + + Interpretation Summary 1) Normal left ventricular thickness, size, wall motion, and systolic function (EF 55-60%). 2) Normal right ventricular size and function. 3) No significant valvular abnormalities. 4) The ascending aorta is mildly enlarged at 4.1cm. 5) Compared to the Echo done 12/20/2016, LVEF has improved to normal on this study. Procedure: A two-dimensional transthoracic echocardiogram with color flow and Doppler was performed. The study quality was technically adequate. Comparison is made with the echocardiogram of 12/20/2016. The patient was in normal sinus rhythm during the exam. Left Ventricle: The left ventricle is normal in size and wall thickness. Left ventricular systolic function is normal. The ejection fraction is estimated to be 55-60%. There are no focal wall motion abnormalities. Diastolic function could not be accurately assessed due to unobtainable data. Right Ventricle: The right ventricle is normal in size and function. Atria: Both atria are normal in size. The interatrial septum grossly appears intact with no obvious evidence for an atrial septal defect. Mitral Valve: The mitral valve is normal in structure and function. There is mild mitral regurgitation. Aortic Valve: The aortic valve is normal in structure and function. There is no aortic valve stenosis. There is mild aortic regurgitation. Tricuspid Valve: The tricuspid valve is normal in structure and function. There is a trace or physiologic amount of tricuspid regurgitation. Pulmonary artery pressures cannot be estimated because of the lack of a measurable TR jet velocity. Pulmonic Valve: The pulmonic valve is normal in structure and function. There is no pulmonic valvular regurgitation. Great Vessels: The aortic root is normal size. The ascending aorta is mildly enlarged. The IVC is of normal diameter and collapses greater than 50% with a sniff. This suggests a low right atrial pressure of 3 mm Hg. Pericardium/ Pleura There is no pericardial effusion. There is no pleural effusion. MMode/2D Measurements & Calculations LVIDd: 5.0 cm LVOT diam: 2.3 cm LVIDs: 3.3 cm Ao root diam: 3.6 cm FS: 34.0 % asc Aorta Diam: 4.1 cm IVSd: 1.1 cm LVPWd: 1.0 cm LV arciniega. diameter/BSA (cm/m^2): 2.3 LV sys. diameter/BSA (cm/m^2): 1.5 LA dimension: 3.3 cm RA long axis: 5.8 cm LA A2 area: 16.5 cm2 LA A4 area: 20.3 cm2 LA length (vol): 5.3 cm LA vol: 53.9 ml LA vol index: 25.1 ml/m2 LVLs ap4: 7.0 cm LVLd ap2: 7.6 cm LVLs ap2: 6.5 cm TAPSE_phl: 2.1 cm Doppler Measurements & Calculations Ao V2 max: 127.0 cm/sec LVOT Max Walter: 117.0 cm/sec Ao V2 mean: 87.1 cm/sec LV V1 max P.5 mmHg Ao max P.0 mmHg LV V1 VTI: 23.9 cm Ao mean P.0 mmHg KELSEY(I,D): 4.3 cm2 Ao V2 VTI: 23.3 cm KELSEY(V,D): 3.8 cm2 sev ratio: 1.0 KELSEY indexed to BSA (cm^2/m^2): 2.0 MV E max walter: 55.7 cm/sec SV(LVOT): 99.3 ml MV A max walter: 57.0 cm/sec MV E/A: 0.98 Med Peak E' Walter: 6.3 cm/sec E/E' med: 8.9 Lat Peak E' Walter: 9.5 cm/sec E/E' lat: 5.9 E/e' average: 7.4 MV dec time: 0.20 sec AV VR_phl: 0.92 MV P1/2t-pr_phl: 60.0 msec KELSEY(VTI)/BSA_phl: 2.0 Reading Physician:06:31 PM
== END ==
PROVIDERS: PCP Family Medicine; Referring Provider Family Medicine; Visit Provider Family Medicine
DX: I08.0 Rheumatic disorders of both mitral and aortic valves; I77.89 Other specified disorders of arteries and arterioles
CPT/HCPCS: 93306

== ENCOUNTER → 2022-05-31 14:35 | Outpatient (CLI) | payer MEDICARE, OTHER, SELFPAY ==
--- NOTE | 2022-05-31 14:37 | DI.RAD.S_ITS ---
PROCEDURE: XR LUMBAR SPINE MIN 4V INDICATIONS: BACK PAIN TECHNIQUE: 5 views of the lumbar spine were acquired, including bilateral oblique views. COMPARISON: None. FINDINGS: Bones: Multilevel degenerative changes of the lumbar spine with leftward curvature of the lumbar spine. There is facet arthrosis in the lower lumbar spine with grade 1 anterolisthesis of L4-5 and grade 1 retrolisthesis of L2-3. No vertebral body height loss. There is disc space narrowing at L2-3 and L4-5. Soft tissues: Overlying bowel gas pattern is normal. No suspicious soft tissue calcifications. Oblique images: No pars defects. IMPRESSION: 1. Multilevel degenerative changes and facet arthrosis. 2. Disc disease at L2-3 and L4-5. 3. Leftward curvature of the lumbar spine. Dictated by: Miguelito Junior M.D. on 05/31/2022 at 16:09 Approved by: Miguelito Junior M.D. on 05/31/2022 at 16:10
== END ==
PROVIDERS: PCP Family Medicine; Referring Provider Anesthesiology; Visit Provider Anesthesiology
DX: M47.816 Spondylosis without myelopathy or radiculopathy, lumbar region (principal); M43.16 Spondylolisthesis, lumbar region; M54.9 Dorsalgia, unspecified
CPT/HCPCS: 72110

== ENCOUNTER → 2022-06-07 10:40 | Outpatient (CLI) | payer MEDICARE, OTHER, SELFPAY ==
--- NOTE | 2022-06-07 10:42 | DI.RAD.S_ITS ---
PROCEDURE: XR SHOULDER RT MIN 2V INDICATIONS: Right shoulder pain TECHNIQUE: 3 views of the shoulder were acquired. COMPARISON: None. FINDINGS: Bones: No fractures or dislocations. No suspicious bony lesions. Visualized ribs appear intact. Degenerative changes of the acromioclavicular joint are present. Soft tissues: No suspicious soft tissue calcifications. IMPRESSION: 1. No acute osseous abnormality. 2. Acromioclavicular joint degenerative changes are present. 3. If symptoms persist, follow-up radiographs and/or CT or MRI may be helpful for further evaluation. Dictated by: Carlos Crockett M.D. on 06/07/2022 at 19:51 Approved by: Carlos Crockett M.D. on 06/07/2022 at 19:54
== END ==
PROVIDERS: PCP Family Medicine; Referring Provider Anesthesiology; Visit Provider Anesthesiology
DX: M25.511 Pain in right shoulder (principal)
CPT/HCPCS: 73030

== ENCOUNTER → 2022-06-13 12:30 | Outpatient (CLI) | payer MEDICARE, OTHER, SELFPAY ==
--- NOTE | 2022-06-13 12:32 | DI.MRI.S_ITS ---
PROCEDURE: MR LUMBAR SPINE WO/W CON INDICATIONS: Cauda equina syndrome TECHNIQUE: Noncontrast sagittal T1 spin echo and T2 fast spin echo, sagittal STIR, axial T1 and T2 fast spin echo through the lumbar spine. In cases with scoliosis, additional coronal T2 fast spin echo may be performed. After the administration of contrast, sagittal and axial T1 spin echo with fat saturation through the lumbar spine. COMPARISON: [facility], MR, L-SPINE W&WO CONTRAST, 11/15/2015, 11:37. [facility], MR, MR LUMBAR SPINE WO/W CON, 04/30/2018, 10:06. [facility], CR, XR LUMBAR SPINE MIN 4V, 05/31/2022, 14:57. [facility], MR, MR LUMBAR SPINE WO/W CON, 02/23/2020, 10:05. FINDINGS: Image quality: Diagnostic, with note made of motion artifact. Alignment and curvature: There is mild retrolisthesis at L2-L3, with minimal retrolisthesis at L3-L4. Mild grade 1 anterolisthesis is seen at L4-L5. Marrow: Marrow is of normal overall signal. No acute vertebral body compression fractures. No suspicious marrow enhancement. Spinal cord: Conus medullaris terminates at the L1 level. Visualized spinal cord demonstrates normal signal, without suspicious enhancement. Paraspinous soft tissues: No paravertebral masses or abnormal enhancement. T12-L1: Normal appearance. L1-L2: The disc height and disk signal are well-preserved. Mild generalized disc bulge is seen. There is mild left-sided and minimal right-sided neural foraminal narrowing. Minimal central canal narrowing is seen. When comparison is made with the prior images, these findings are similar. L2-L3: Moderate loss of disc height is seen on the right. Loss of disc signal is seen. Moderate generalized disc bulge is seen. There is a superimposed central disc protrusion. Prior left hemilaminectomy change can be seen. There is moderate left-sided and cbor-my-iezjtrce right-sided neural foraminal narrowing. No central canal narrowing is seen. There is slight progression of degenerative change compared to 2020. L3-L4: Mild to moderate loss of disc height is seen. Loss of disc signal is seen. Moderate generalized disc bulge is seen. Mild to moderate facet joint hypertrophy is seen. There is at least moderate bilateral neural foraminal narrowing seen. There is a degree of compression seen upon the exiting nerve roots. Moderate central canal narrowing is seen. When comparison is made with the prior images, these findings are similar. L4-L5: Moderate loss of disc height is seen. Loss of disc signal is seen. Mild to moderate disc bulge is seen, with a mild central disc protrusion. At least moderate facet hypertrophy is seen. There is at least moderate bilateral neural foraminal narrowing seen, left worse than right. There is a degree of compression seen upon the exiting nerve roots. At least moderate central canal narrowing is seen at this level. When comparison is made with the prior images, these findings are similar. L5-S1: The disc height and disk signal are relatively well-preserved. Mild generalized disc bulge is seen. Mild to moderate facet hypertrophy is seen. There is moderate right-sided and minimal left-sided neural foraminal narrowing. Mild central canal narrowing is seen. When comparison is made with the prior images, these findings are similar. IMPRESSION: Multiple levels of lumbar spine degenerative change are seen, with slight progression of the degenerative change at L2-L3 compared to 2020. No abnormal enhancement is seen. Dictated by: Moi Duque M.D. on 06/13/2022 at 13:27 Approved by: Moi Duque M.D. on 06/13/2022 at 13:33
== END ==
PROVIDERS: PCP Family Medicine; Referring Provider Family Medicine; Visit Provider Family Medicine
DX: G83.4 Cauda equina syndrome (principal); M47.26 Other spondylosis with radiculopathy, lumbar region; M47.27 Other spondylosis with radiculopathy, lumbosacral region
CPT/HCPCS: 72158

== ENCOUNTER → 2023-01-19 17:05 | Outpatient (CLI) | payer MEDICARE, OTHER, SELFPAY ==
--- NOTE | 2023-01-19 17:08 | DI.RAD.S_ITS ---
PROCEDURE: XR FOOT LT MIN 3V INDICATIONS: BILATERAL FOOT PAIN TECHNIQUE: 3 views of the foot were acquired. COMPARISON: [facility], CR, XR FOOT RT MIN 3V, 01/19/2023, 17:05. [facility], CR, XR FOOT RT MIN 3V, 09/07/2018, 11:29. 11/07/2018. FINDINGS: Bones: No fractures or dislocations. No suspicious bony lesions. There is focal degenerative change seen involving the 1st metatarsophalangeal joint, with focal joint space narrowing with associated subchondral sclerosis and osteophyte formation, with fragmentation. Milder degenerative changes are seen elsewhere. Soft tissues: No tibiotalar joint effusion. Achilles tendon appears normal. IMPRESSION: Focal 1st metatarsal-phalangeal joint degenerative change. The degenerative changes have progressed over time. Dictated by: Moi Duque M.D. on 01/19/2023 at 20:39 Approved by: Moi Duque M.D. on 01/19/2023 at 20:40
--- NOTE | 2023-01-19 17:08 | DI.RAD.S_ITS ---
PROCEDURE: XR FOOT RT MIN 3V INDICATIONS: BILATERAL FOOT PAIN TECHNIQUE: 3 views of the foot were acquired. COMPARISON: [facility], CR, XR FOOT RT MIN 3V, 09/07/2018, 11:29. [facility], CR, XR FOOT 3 VIEWS WEIGHT BEARING RIGHT, 11/07/2018, 13:16. FINDINGS: Bones: There is focal 1st metatarsophalangeal joint degenerative change seen, with focal joint space narrowing with associated subchondral sclerosis and osteophyte formation, with mild fragmentation. Milder degenerative changes are seen elsewhere. No fractures or dislocations. No suspicious bony lesions. Incidental note is made of accessory ossicles, including an os trigonum and an os peroneum. Soft tissues: No tibiotalar joint effusion. Achilles tendon appears normal. IMPRESSION: There is focal 1st metatarsophalangeal joint degenerative change, which has progressed over time. Dictated by: Moi Duque M.D. on 01/19/2023 at 20:41 Approved by: Moi Duque M.D. on 01/19/2023 at 20:42
== END ==
PROVIDERS: PCP Family Medicine; Referring Provider Family Medicine; Visit Provider Family Medicine
DX: M79.671 Pain in right foot (principal); M79.672 Pain in left foot
CPT/HCPCS: 73630

== ENCOUNTER → 2023-08-30 12:17 | Outpatient (CLI) | payer MEDICARE, OTHER, SELFPAY ==
--- NOTE | 2023-08-30 12:18 | DI.RAD.S_ITS ---
PROCEDURE: XR DEXA AXIAL SKELETON INDICATIONS: Localized osteoporosis [[place]] COMPARISON: None. FINDINGS: This blank DEXA report has been sent in error by the PACS system. The correct and complete report will be forthcoming in 1-2 days. Thank you for your patience and understanding. Dictated by: Isaiah Randolph M.D. on 08/30/2023 at 14:56 Approved by: Isaiah Randolph M.D. on 08/30/2023 at 14:56
--- NOTE | 2023-08-30 12:33 | DI.DEXA.S_ITS ---
Bone Density Report Name: FARHANA MCKAY Age: 73 Sex: Male Ethnicity: White Date of : 1950 Indication: screening for osteoporosis; Referring Provider: VIRGIL POLLARD Study: Bone densitometry was performed. Exam Date: August 30, 2023 Accession number: [id number] Bone Density: Region BMD T-score Z-score Classification AP Spine(L1, L2, L3) 1.132 1.0 1.5 Normal Femoral Neck (Left) 0.781 -0.6 0.2 Normal Total Hip (Left) 0.962 0.2 0.3 Normal Femoral Neck (Right) 0.804 -0.4 0.4 Normal Total Hip (Right) 0.922 -0.2 0.0 Normal Total Hip Mean 0.942 0.0 0.2 Normal World Health Organization criteria for BMD impression classify patients as: Normal (T-score at or above -1.0), Osteopenia (T-score between -1.0 and -2.5), or Osteoporosis (T-score at or below -2.5). 10-year Fracture Risk: FRAX not reported because: All T-scores for Spine Total, Hip Total, Femoral Neck at or above -1.0 Impression: The patient has normal bone mass. Discussion: BONE DENSITY IS ABOVE THE MINIMUM DESIRABLE LEVEL AT ALL SKELETAL SITES TESTED. This patient?s bone mineral density is above the minimum desirable level (T-score -1.0 or better) at all sites measured. The patient should follow a healthful lifestyle (good nutrition with adequate calcium and vitamin D, and appropriate weight-bearing exercise). Follow-Up: Consider repeating this study in 5 years or sooner if there is some new clinical indication. Reported by: HIEN KNIGHT MD on 08/30/2023 12:46:00 PM.
== END ==
PROVIDERS: PCP Family Medicine; Referring Provider Family Medicine; Visit Provider Family Medicine
DX: M81.6 Localized osteoporosis [Lequesne] (principal)
CPT/HCPCS: 77080

== ENCOUNTER 2024-01-17 11:15 | Outpatient (RCR) | payer MEDICARE, OTHER, SELFPAY ==
--- NOTE | 2023-11-29 13:07 | ST.OPIE ---
Visit Care Team Role Provider Type Bryce Tom MD Attending Provider Physician Family Provider Primary Care Provider Referring Provider Specialty: Family Practice Address: [facility] [place], [address] Email: [email or web address] Speech-Language Pathology Initial Evaluation TELECOMMUNICATION ENGINEER Voice Resonance Evaluation Start: 11/28/23 12:25 Freq: Status: Active Protocol: Document 11/28/23 12:25 CG (Rec: 11/28/23 12:54 CG [id number]) Voice and Resonance Assessment Session Time Visit Start Time 12:00 Visit Stop Time 12:55 Total Visit Minutes 55 Visit Information Visit Number 1 Next Note Type Next Note Type Treatment Note Referral Referring Physician Dr. Tom Reason for Referral hoarseness, excessive salivation Setting Setting Acute Care Patient History Patient History Brien Trejo is a 73 -year-old male presenting to this clinic at the referral of Dr. Tom with concerns regarding excessive salivation /swallowing and voice changes. He has a PMHx significant for hypertension, anxiety, GERD, Afib, and radiculopathy, amongst other diagnoses. Pt reports that he has been experiencing what he believes to be excessive salivation gathering in the back of his throat, particularly at night when he tries to sleep. This causes him to swallow frequently which he states keeps him awake. He states that it's possible that some of what he is feeling is post- nasal drip. He does not feel he has any difficulty with the act of swallowing so much as he feels he needs to swallow excessively. He does not report coughing/choking on foods/liquids. Pt has a long GI history, including previously experiencing globus sensation in the chest when swallowing, but most GI symptoms have resolved or improved with medical management (omeprazole ) and diet/lifestyle changes. Pt's dose of omeprazole was recently increased from 20 mg daily to 40mg daily. He feels this improved his excessive salivation symptoms slightly. Additionally, pt recently stopped taking tamsulosin ( Flomax) as there was concern it was contributing to excessive salivation and replaced with Saw [place] supplement. With regards to his voice, pt states that he typically wakes up with a hoarse voice the day after socializing. He states he is very strict with his diet and does not change his dietary or behavioral precautions for GERD even in social contexts. He also states he does not drink. He feels that his voice is unpredictable and that it feels more effortful than before. He does have a referral in place to Dr. Poole, ENT, in early December. Pt states that he feels be began experiencing multiple health problems/symptoms across multiple body systems after he contracted Covid-19 in 2021. Since they, he feels his health has not been the same. Hearing Hearing Level Normal Auditory History WFL Educational Status Education Level Master's of Education Previous Therapy Previous Speech-Language Therapy No Oral Motor Assessment Source: [place] [employer] ([employer]). Oral-Motor Eval Completed Yes Oral-Motor Assessment WFL Subjective Subjective Pt is alert, independently ambulatory, oriented, and able to understand and answer all questions asked. - Laryngeal Performance CAPE-V Overall Severity 20 Roughness 25 Breathiness 30 Strain 25 Pitch 0 Loudness 0 Normal Resonance? No: Mildly tense Additional Features Aphonia Other Features Observed Very mild occasional aphonia Maximum Phonation Time MPT Norms: Women (15-25) Men (25-35) Loudness (50-60 dB); Speaking Rate: Oral Reading of Sentences (190 Words Per Minute); Oral Reading of Paragraphs (160-170 WPM); Speaking Rate in Conversation (150-250 WPM) Maximum Phonation Time Reduced Maximum Phonation Time Comments 9.88 seconds avg max phonation time at an average of 74dB across 5 trials. Average frequency of ~120 Hz. Muscle Tension Assessment Muscle Tension Assessment Other Muscle Tension Assessment Comments Perceptually based on voice, suspect base of tongue tension Tongue Base Tension Tongue Base Tension w/ Voicing Yes Tongue Base Tension Comment Mild tension with voicing Breath Support Breath Support At Rest Clavicular Breath Support Sustained Phonation Clavicular Breath Support Conversation Clavicular Speaks on Room Air Yes Postural Alignment Stance Balanced Voice Pitch Range Norms: Women (100-300 Hz) Men (70-250 Hz) Fundamental Frequency Norms: Women (Mean: 225 Hz; Range: 155-334 Hz) Men ( Mean: 128 Hz; Range: 85-196 Hz) Voice Pitch Normal Voice Loudness Normal Therapeutic Techniques Therapy Tactics Shifting Tone Focus,Easy Onset ,Breath Support Findings Findings Mild Impairment Observations Pt presents with a very mild vocal impairment characterized by mild audible vocal tension and very mild aphonia. He also complains of excessive salivation, which may or may not be related to GERD (which is a possible cause of hoarseness, as well). Suspect there may be some muscle tension dysphonia. TELECOMMUNICATION ENGINEER recommends the followin. Continue with ENT consult as scheduled and discuss laryngeal imaging to assess for causes of dysphonia and assess for the presence of muscle tension. If muscle tension is suspected as cause of hoarseness, proceed with voice therapy with focus on shifting resonance. 2. Talk to PCP about possible medical interventions for excessive salivation. For example, pt and PCP might discuss scopolamine if not contra-indicated as it can decrease salivation. Prognosis Rehabilitation Potential Good - Recommendations Treatment Recommended Yes: After ENT visit Placement Recommendation Home Short Term Goals 1. Complete ENT evaluation to determine whether hoarseness is 2/ muscle tension. 2. POC to be updated following ENT evaluation. Referrals Referrals ENT Patient/Caregiver Education Patient/Family Education Described results of evaluation,Patient Understanding
--- NOTE | 2023-11-29 13:09 | ST.OPPOC ---
Physical, Occupational & Speech Therapy At [facility] Visit Care Team Role Provider Type Bryce Tom MD Attending Provider Physician Family Provider Primary Care Provider Referring Provider Address: [address], [place], [address] Speech Pathology Plan of Care Plan of Care Dates 11/28/23-02/28/[address] Tom Patient History Brien Trejo is a 73-year-old male presenting to this clinic at the referral of Dr. Tom with concerns regarding excessive salivation/swallowing and voice changes. He has a PMHx significant for hypertension, anxiety, GERD, Afib, and radiculopathy, amongst other diagnoses. Pt reports that he has been experiencing what he believes to be excessive salivation gathering in the back of his throat, particularly at night when he tries to sleep. This causes him to swallow frequently which he states keeps him awake. He states that it's possible that some of what he is feeling is post-nasal drip. He does not feel he has any difficulty with the act of swallowing so much as he feels he needs to swallow excessively. He does not report coughing/choking on foods/liquids. Pt has a long GI history, including previously experiencing globus sensation in the chest when swallowing, but most GI symptoms have resolved or improved with medical management (omeprazole) and diet/lifestyle changes. Pt's dose of omeprazole was recently increased from 20 mg daily to 40mg daily. He feels this improved his excessive salivation symptoms slightly. Additionally, pt recently stopped taking tamsulosin (Flomax) as there was concern it was contributing to excessive salivation and replaced with Saw [place] supplement. With regards to his voice, pt states that he typically wakes up with a hoarse voice the day after socializing. He states he is very strict with his diet and does not change his dietary or behavioral precautions for GERD even in social contexts. He also states he does not drink. He feels that his voice is unpredictable and that it feels more effortful than before. He does have a referral in place to Dr. Poole, ENT, in early December. Pt states that he feels be began experiencing multiple health problems/symptoms across multiple body systems after he contracted Covid- 19 in 2021. Since they, he feels his health has not been the same. Voice/Resonance Findings Mild Impairment Voice/Resonance Prognosis Good Voice/Resonance Yes: After ENT visit Recommendations Short Term Goals 1. Complete ENT evaluation to determine whether hoarseness is 2/ muscle tension. 2. POC to be updated following ENT evaluation. Comment: Electronically Signed by: KATHERINE Jensen 11/29/23 7032 If you are in agreement with this Plan of Care, please return a signed and dated copy. I have reviewed this Plan of Care and certify that the skilled therapy services above are required to meet the patient?s needs. Physician Signature Date Printed Name and Credentials
--- NOTE | 2024-01-10 12:45 | ST.OPTN ---
Visit Care Team Role Provider Type Bryce Tom MD Attending Provider Physician Family Provider Primary Care Provider Referring Provider Address: [facility] [address], [place], [address] ARMATURE WINDER Treatment Note ARMATURE WINDER Treatment Note Start: 01/10/24 12:35 Freq: Status: Active Protocol: Document 01/10/24 12:35 CG (Rec: 01/10/24 12:45 CG [id number]) Speech Pathology Treatment Note Session Time Visit Start Time 11:20 Visit Stop Time 12:00 Total Visit Minutes 40 Visit Information Visit Number 1 Plan of Care Dates 11/28/23-02/28/24 Next Note Type Next Note Type Treatment Note General Information Patient History Brien Trejo is a 73 -year-old male presenting to this clinic at the referral of Dr. Tom with concerns regarding excessive salivation /swallowing and voice changes. He has a PMHx significant for hypertension, anxiety, GERD, Afib, and radiculopathy, amongst other diagnoses. Pt reports that he has been experiencing what he believes to be excessive salivation gathering in the back of his throat, particularly at night when he tries to sleep. This causes him to swallow frequently which he states keeps him awake. He states that it's possible that some of what he is feeling is post- nasal drip. He does not feel he has any difficulty with the act of swallowing so much as he feels he needs to swallow excessively. He does not report coughing/choking on foods/liquids. Pt has a long GI history, including previously experiencing globus sensation in the chest when swallowing, but most GI symptoms have resolved or improved with medical management (omeprazole ) and diet/lifestyle changes. Pt's dose of omeprazole was recently increased from 20 mg daily to 40mg daily. He feels this improved his excessive salivation symptoms slightly. Additionally, pt recently stopped taking tamsulosin ( Flomax) as there was concern it was contributing to excessive salivation and replaced with Saw [place] supplement. With regards to his voice, pt states that he typically wakes up with a hoarse voice the day after socializing. He states he is very strict with his diet and does not change his dietary or behavioral precautions for GERD even in social contexts. He also states he does not drink. He feels that his voice is unpredictable and that it feels more effortful than before. He does have a referral in place to Dr. Poole, ENT, in early December. Pt states that he feels be began experiencing multiple health problems/symptoms across multiple body systems after he contracted Covid-19 in 2021. Since they, he feels his health has not been the same. Objective Short Term Goals 1. Complete ENT evaluation to determine whether hoarseness is 2/ muscle tension. (GOAL MET) 2. Pt will complete resonance shifting exercises with 80% accuracy independently in order to reduce laryngeal tension and decrease instances of hoarseness. 3. Pt will complete diaphragmatic breathing exercises with an inhale/ exhale ratio of 8s to 16s in 80% of opportunities in order to improve respiratory subsystem for vocal support. Skilled Nursing Goals 1. Pt will demonstrate independence and proficiency with all vocal exercises introduced in 80% of opportunities in order to progress towards independent home maintenance program. Treatment Activities Review of visit to ENT. Instruction in basic anatomy/ physiology of voice. Introduction of diaphragmatic breathing and resonance shifting exercises. Assessment Assessment of Improvement Pt states that ENT did not note any structural abnormalities or inflamation upon scope. Pt states that his dosage of omeprazole is increasing and he hopes this will help get GERD under control. Pt continues to c/o hoarseness particularly first thing in the morning. He does report muscle tension on left side of neck near SCM muscle many mornings. Although pt does not believe ENT noted muscle tension in larynx/ pharynx, other possible causes of hoarseness seem to have been elimitated or are in the process of being eliminated. Therefore, we discussed focusing on resonance exercises for easy voicing as a remaining treatment option. Pt was agreeable to instruction in resonance exercises and was able to accurately complete /m/ + vowel exercise in 100% of opportunities. He was able to complete diaphragmatic breathing/breath control exercise in 80% of opportunities independently, and was quickly able to demonstrate correct diaphragmatic breathing technique. Pt agreeable to HEP which ARMATURE WINDER printed and provided. Reviewed with Patient Goals,Home Exercise Program Patient/Caregiver Understanding Good Plan Length of Session 30 Minutes Therapeutic Contents Voice Training Provided Patient/Caregiver Instruction Home Exercise Program,Plan of Care
--- NOTE | 2024-01-17 12:47 | ST.OPTN ---
Visit Care Team Role Provider Type Bryce Tom MD Attending Provider Physician Family Provider Primary Care Provider Referring Provider Address: [facility] [address], [place], [address] SUPERVISOR NUT PROCESSING Treatment Note SUPERVISOR NUT PROCESSING Treatment Note Start: 01/10/24 12:35 Freq: Status: Active Protocol: Document 01/17/24 12:42 CG (Rec: 01/17/24 12:46 CG [id number]) Speech Pathology Treatment Note Session Time Visit Start Time 11:20 Visit Stop Time 12:00 Total Visit Minutes 40 Visit Information Visit Number 2 Plan of Care Dates 11/28/23-02/28/24 Next Note Type Next Note Type Treatment Note General Information Patient History Brien Trejo is a 73 -year-old male presenting to this clinic at the referral of Dr. Tom with concerns regarding excessive salivation /swallowing and voice changes. He has a PMHx significant for hypertension, anxiety, GERD, Afib, and radiculopathy, amongst other diagnoses. Pt reports that he has been experiencing what he believes to be excessive salivation gathering in the back of his throat, particularly at night when he tries to sleep. This causes him to swallow frequently which he states keeps him awake. He states that it's possible that some of what he is feeling is post- nasal drip. He does not feel he has any difficulty with the act of swallowing so much as he feels he needs to swallow excessively. He does not report coughing/choking on foods/liquids. Pt has a long GI history, including previously experiencing globus sensation in the chest when swallowing, but most GI symptoms have resolved or improved with medical management (omeprazole ) and diet/lifestyle changes. Pt's dose of omeprazole was recently increased from 20 mg daily to 40mg daily. He feels this improved his excessive salivation symptoms slightly. Additionally, pt recently stopped taking tamsulosin ( Flomax) as there was concern it was contributing to excessive salivation and replaced with Saw [place] supplement. With regards to his voice, pt states that he typically wakes up with a hoarse voice the day after socializing. He states he is very strict with his diet and does not change his dietary or behavioral precautions for GERD even in social contexts. He also states he does not drink. He feels that his voice is unpredictable and that it feels more effortful than before. He does have a referral in place to Dr. Poole, ENT, in early December. Pt states that he feels be began experiencing multiple health problems/symptoms across multiple body systems after he contracted Covid-19 in 2021. Since they, he feels his health has not been the same. Objective Short Term Goals 1. Complete ENT evaluation to determine whether hoarseness is 2/ muscle tension. (GOAL MET) 2. Pt will complete resonance shifting exercises with 80% accuracy independently in order to reduce laryngeal tension and decrease instances of hoarseness. 3. Pt will complete diaphragmatic breathing exercises with an inhale/ exhale ratio of 8s to 16s in 80% of opportunities in order to improve respiratory subsystem for vocal support. Skilled Nursing Goals 1. Pt will demonstrate independence and proficiency with all vocal exercises introduced in 80% of opportunities in order to progress towards independent home maintenance program. Treatment Activities Review of resonant voice therapy techniques and diaphragmatic breathing techniques. Instruction in cup-bubble phonation. Discussed laryngeal/SCM massage. Assessment Patient Response to Treatment Excellent Assessment of Improvement Pt was able to complete diaphragmatic breathing/breath control exercise in 100% of opportunities independently. He stated that he has increased sensory awareness of where air resonates along his vocal tract. He states he feels decreased tension when completing resonant voice therapy techniques. Pt was agreeable to cup-bubble technique and stated feeling resonance in his cheeks upon completing cup-bubble phonation. Pt stated he had no questions about home exercises and feels independent for these exercises. He says he will schedule follow up if any questions arise. Reviewed with Patient Goals,Home Exercise Program Patient/Caregiver Understanding Good Plan Length of Session 30 Minutes Therapeutic Contents Voice Training Provided Patient/Caregiver Instruction Home Exercise Program,Plan of Care
--- NOTE | 2024-07-16 12:42 | ST.OPDS ---
Visit Care Team Role Provider Type Bryce Tom MD Attending Provider Physician Family Provider Primary Care Provider Referring Provider Address: [facility] [address], [place], [address] RESEARCH ANTHROPOLOGIST Discharge Note RESEARCH ANTHROPOLOGIST Discharge Note Start: 01/10/24 12:35 Freq: Status: Active Protocol: Document 07/16/24 12:40 CG (Rec: 07/16/24 12:42 CG [id number]) Speech Pathology Treatment Note Session Time Visit Start Time 11:20 Visit Stop Time 12:00 Total Visit Minutes 40 Visit Information Visit Number 2 Plan of Care Dates 11/28/23-02/28/24 Visit Type Note Type Discharge Summary General Information Patient History Brien Trejo is a 73 -year-old male presenting to this clinic at the referral of Dr. Tom with concerns regarding excessive salivation /swallowing and voice changes. He has a PMHx significant for hypertension, anxiety, GERD, Afib, and radiculopathy, amongst other diagnoses. Pt reports that he has been experiencing what he believes to be excessive salivation gathering in the back of his throat, particularly at night when he tries to sleep. This causes him to swallow frequently which he states keeps him awake. He states that it's possible that some of what he is feeling is post- nasal drip. He does not feel he has any difficulty with the act of swallowing so much as he feels he needs to swallow excessively. He does not report coughing/choking on foods/liquids. Pt has a long GI history, including previously experiencing globus sensation in the chest when swallowing, but most GI symptoms have resolved or improved with medical management (omeprazole ) and diet/lifestyle changes. Pt's dose of omeprazole was recently increased from 20 mg daily to 40mg daily. He feels this improved his excessive salivation symptoms slightly. Additionally, pt recently stopped taking tamsulosin ( Flomax) as there was concern it was contributing to excessive salivation and replaced with Saw [place] supplement. With regards to his voice, pt states that he typically wakes up with a hoarse voice the day after socializing. He states he is very strict with his diet and does not change his dietary or behavioral precautions for GERD even in social contexts. He also states he does not drink. He feels that his voice is unpredictable and that it feels more effortful than before. He does have a referral in place to Dr. Poole, ENT, in early December. Pt states that he feels be began experiencing multiple health problems/symptoms across multiple body systems after he contracted Covid-19 in 2021. Since they, he feels his health has not been the same. Objective Short Term Goals 1. Complete ENT evaluation to determine whether hoarseness is 2/ muscle tension. (GOAL MET) 2. Pt will complete resonance shifting exercises with 80% accuracy independently in order to reduce laryngeal tension and decrease instances of hoarseness. 3. Pt will complete diaphragmatic breathing exercises with an inhale/ exhale ratio of 8s to 16s in 80% of opportunities in order to improve respiratory subsystem for vocal support. Residential Goals 1. Pt will demonstrate independence and proficiency with all vocal exercises introduced in 80% of opportunities in order to progress towards independent home maintenance program. Treatment Activities Treatment activities included the following: -Instruction in basic anatomy/ physiology of voice -Instruction in diaphragmatic breathing and resonance shifting exercises. -Instruction in cup-bubble phonation. -Instruction in laryngeal/SCM massage. Assessment Patient Response to Treatment Excellent Assessment of Improvement As of last session, pt was able to complete diaphragmatic breathing/breath control exercise in 100% of opportunities independently. He stated that he has increased sensory awareness of where air resonates along his vocal tract. He states he feels decreased tension when completing resonant voice therapy techniques. Pt was agreeable to cup-bubble technique and stated feeling resonance in his cheeks upon completing cup-bubble phonation. Pt stated he had no questions about home exercises and feels independent for home exercises . D/c to home exercise program. Reviewed with Patient Goals,Home Exercise Program Patient/Caregiver Understanding Good Plan Length of Session 30 Minutes Therapeutic Contents Voice Training Provided Patient/Caregiver Instruction Home Exercise Program,Plan of Care Therapy Recommendations Discharge to Home Exercise Program
== END 2024-07-23 11:03 | disposition home or self-care (01) ==
LOC: SP 11:15
PROVIDERS: Family Provider Family Medicine; PCP Family Medicine; Referring Provider Family Medicine; Visit Provider Family Medicine
DX: R13.10 Dysphagia, unspecified (principal); K11.7 Disturbances of salivary secretion
CPT/HCPCS: 92507; 92524

== ENCOUNTER → 2024-07-15 14:40 | Outpatient (CLI) | payer MEDICARE, OTHER, SELFPAY ==
--- NOTE | 2024-07-15 14:42 | DI.RAD.S_ITS ---
PROCEDURE: XR HAND RT MIN 3V INDICATIONS: HAND PAIN TECHNIQUE: 3 views of the hand(s) acquired. COMPARISON: None. FINDINGS: Bones: No fractures or dislocations. Asymmetric joint space loss and slight subluxation at the 2nd DIP and 1st IP joints. Carpal bones are normally aligned. No suspicious bony lesions. Soft tissues: No suspicious soft tissue calcifications. IMPRESSION: Mild, scattered arthritic changes. Dictated by: Maile Avelar M.D. on 07/15/2024 at 18:42 Approved by: Maile Avelar M.D. on 07/15/2024 at 18:43
== END ==
PROVIDERS: Family Provider Family Medicine; PCP Family Medicine; Referring Provider Family Medicine; Visit Provider Family Medicine
DX: M79.2 Neuralgia and neuritis, unspecified (principal)
CPT/HCPCS: 73130

== ENCOUNTER → 2024-10-13 14:37 | Outpatient (CLI) | payer MEDICARE, OTHER, SELFPAY ==
[2024-10-13 15:08] LABS: Add Manual Diff / Slide Review NO; Basophils Absolute Auto 0 /uL (0-100); Basophils Percent Auto 0.6 % (0-2); Eosinophils Absolute Auto 0 /uL (0-450); Eosinophils Percent Auto 0.8 % (2-4); Hematocrit 43.7 % (41-53); Hemoglobin 14.5 g/dL (13.5-17.5); Lymphocytes Absolute Auto 1100 /uL (1100-4500); Lymphocytes Percent Auto 21.6 % (25-40); Mean Corpuscular HGB Conc 33.1 % (30-36); Mean Corpuscular Hemoglobin 30.6 PG (26-34); Mean Corpuscular Volume 92.5 fL (80-100); Monocytes Absolute Auto 300 /uL (0-900); Monocytes Percent Auto 6.5 % (3-14); Neutrophils Absolute Auto 3400 /uL (1500-7000); Neutrophils Percent Auto 70.5 % (50-75); Platelet Count 197 X10^3/uL (150-400); Red Blood Cell Count 4.73 X10^6/uL (4.5-5.9); White Blood Cell Count 4.9 X10^3/uL (4.5-11.0)
[2024-10-13 15:25] LABS: Alanine Aminotransferase 35 IU/L (<50); Albumin 4.6 g/dL (3.5-5.0); Albumin Globulin Ratio 1.8 (1.0-2.8); Alkaline Phosphatase 83 U/L (38-126); Aspartate Aminotransferase 35 IU/L (17-59); BUN Creatinine Ratio 24.5 (6-22); Bilirubin Total 0.5 mg/dL (0.2-1.3); Blood Urea Nitrogen 24 mg/dL (9-20); Calcium 9.1 mg/dL (8.4-10.2); Carbon Dioxide 22 mmol/L (22-32); Chloride 107 mmol/L (98-107); Estimated Glomerular Filt Rate > 60 mL/min (>60); Globulin 2.6 g/dL (1.7-4.1); Glucose 107 mg/dL (80-110); HEMOLYSIS < 15 (0-50); Potassium 4.4 mmol/L (3.4-5.1); Sodium 140 mmol/L (137-145); Total Protein 7.2 g/dL (6.3-8.2)
[2024-10-13 15:42] LABS: Erythrocyte Sedimentation Rate 3 MM/HR (0-15)
[2024-10-15 04:08] LABS: IGA 229 mg/dL (61-437); IGG 1037 mg/dL (603-1613); IGM 19 mg/dL (15-143)
[2024-10-16 12:35] LABS: Alpha-1-Globulin 0.2 g/dL (0.0-0.4); Alpha-2-Globulin 0.7 g/dL (0.4-1.0); Globulin Total 2.8 g/dL (2.2-3.9); Protein, Total 6.8 g/dL (6.0-8.5)
[2024-10-17 08:36] LABS: Phospholipids, Serum 189 mg/dL (127-261)
[2024-10-18 19:10] LABS: ANA Screen, IFA Negative (.)
== END ==
PROVIDERS: Family Provider Family Medicine; PCP Family Medicine; Referring Provider Internal Medicine; Visit Provider Internal Medicine
DX: T69.1XXA Chilblains, initial encounter (principal)
CPT/HCPCS: 36415; 80053; 82784; 84155; 84165; 84311; 85025; 85651; 86038

== ENCOUNTER → 2024-11-10 14:21 | Outpatient (CLI) | payer MEDICARE, OTHER, SELFPAY ==
[2024-11-10 15:59] LABS: Free T4, Direct Thyroxine 1.04 ng/dL (0.78-2.19)
[2024-11-10 16:13] LABS: Thyroid Stimulating Hormone 1.67 uIU/mL (0.47-4.68)
== END ==
LOC: LAB 14:25
PROVIDERS: Family Provider Family Medicine; PCP Family Medicine; Referring Provider Internal Medicine; Visit Provider Internal Medicine
DX: L50.8 Other urticaria (principal)
CPT/HCPCS: 36415; 82785; 83520; 84439; 84443

== ENCOUNTER → 2025-02-26 11:14 | Outpatient (CLI) | payer MEDICARE, OTHER, SELFPAY ==
[2025-02-26 13:07] LABS: Prostate Specific Antigen 2.35 ng/mL (0.10-4.00)
== END ==
PROVIDERS: Family Provider Family Medicine; PCP Family Medicine; Referring Provider Urology; Visit Provider Urology
DX: N40.1 Benign prostatic hyperplasia with lower urinary tract symptoms (principal); N13.8 Other obstructive and reflux uropathy
CPT/HCPCS: 36415; 84153